=== PATIENT | female | born 1965 | race African-American/Black ===

== ENCOUNTER 2016-03-17 22:13 | Inpatient (IN) | payer OTHER ==
[~2016-03-17] VITALS: Ht 167.6 cm; Wt 118.3 kg
[~2016-03-17 22:13] MED LIST: ESCI10TA PO; LURA40 PO; METO25 PO; PRAZ1 PO; QUET100 PO; SERO100T PO; TAMS0.4C67 PO
[2016-03-17 23:35] VITALS: BP 165/97; PULSE 95; RESP 18; TEMP 97.9; O2SAT 99
[2016-03-18] MEDS ORDERED: BENZTROPINE MESYLATE 2 MG/2 ML VIAL IM PRN (00:15)
[2016-03-18] MEDS ORDERED: BENZTROPINE MESYLATE 1 MG TAB PO PRN (00:15)
[2016-03-18] MEDS ORDERED: MAGNESIUM HYDROXIDE SUSP 30 ML CUP PO PRN (00:15)
[2016-03-18] MEDS: traZODone HCL 50 MG TAB PO PRN ×2 (00:44→22:23)
[2016-03-18 06:08] VITALS: BP 132/70; PULSE 81; RESP 17; TEMP 97.6
[2016-03-18 07:17] LABS: AUTOMATED NEUTROPHIL # 1.6 TH/MM3 (1.8-7.7); BASOPHIL % 0.4 % (0.0-2.0); EOSINOPHIL # 0.1 TH/MM3 (0-0.4); EOSINOPHIL % 2.4 % (0.0-4.0); HEMATOCRIT 35.5 % (35.0-46.0); HEMO FLAGS DIFF FINAL; LYMPHOCYTE # 1.3 TH/MM3 (1.0-4.8); MEAN CELL VOLUME 81.8 FL (80.0-100.0); MEAN CORPUSCULAR HEMOGLOBIN 27.5 PG (27.0-34.0); MEAN CORPUSCULAR HGB CONC 33.7 % (32.0-36.0); MONO % 10.1 % (0.0-8.0); NEUT % 48.1 % (16.0-70.0); PLATELET COUNT 135 TH/MM3 (150-450); RED BLOOD COUNT 4.34 MIL/MM3 (4.00-5.30); RED CELL DISTRIBUTION WIDTH 15.2 % (11.6-17.2); WHITE BLOOD COUNT 3.4 TH/MM3 (4.0-11.0)
[2016-03-18 07:45] LABS: ALKALINE PHOSPHATASE 86 U/L (45-117); ALT (GPT) 21 U/L (10-53); ANION GAP 9 MEQ/L (5-15); AST (GOT) 10 U/L (15-37); BICARBONATE 24.1 MEQ/L (21.0-32.0); BLOOD UREA NITROGEN 11 MG/DL (7-18); CHLORIDE 104 MEQ/L (98-107); GLOMERULAR FILTRATION RATE 89 ML/MIN (>89); SODIUM (NA) 137 MEQ/L (136-145); TOTAL BILIRUBIN ADULT 0.3 MG/DL (0.2-1.0)
[2016-03-18 07:46] LABS: BHCG SCREEN QUALITATIVE LESS THAN 1 MIU/ML (0-5)
[2016-03-18] MEDS: ACETAMINOPHEN 325 MG TAB PO PRN (10:11)
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
[2016-03-18] MEDS: PRAZOSIN HCL 1 MG CAP PO SCH ×2 (11:10→22:23)
[2016-03-18] MEDS: QUEtiapine FUMARATE 200 MG TAB PO SCH ×2 (11:10→22:23)
[2016-03-18] MEDS: ALUMINUM/MAGNESIUM/SIMETH 30 ML CUP PO PRN (17:55)
[2016-03-18 18:16] VITALS: BP 114/67; PULSE 83; RESP 12; O2SAT 98
[2016-03-18 20:50] VITALS: BP 146/87; PULSE 83
[2016-03-19 05:21] VITALS: BP 131/84; PULSE 88; RESP 18; TEMP 98.5; O2SAT 95
[2016-03-19] MEDS: PRAZOSIN HCL 1 MG CAP PO SCH ×2 (09:00→21:26)
[2016-03-19] MEDS: QUEtiapine FUMARATE 200 MG TAB PO SCH ×2 (09:00→21:26)
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
[2016-03-19] MEDS ORDERED: DEXTROSE 50% IN WATER 50 ML VIAL(D50) IV PUSH PRN (17:30)
[2016-03-19] MEDS ORDERED: GLUCAGON 1 MG/ML VIAL OTHER PRN (17:30)
[2016-03-19] MEDS ORDERED: PILL SPLITTER OTHER PRN (17:45)
[2016-03-19 19:29] VITALS: BP 157/76; PULSE 102; RESP 18; TEMP 98.3; O2SAT 99
[2016-03-19] MEDS: INSULIN ASPART SUPPLEMENTAL SCALE SQ SCH (21:25)
[2016-03-20] MEDS: traZODone HCL 50 MG TAB PO PRN (04:36)
[2016-03-20] MEDS: ACETAMINOPHEN 325 MG TAB PO PRN ×2 (04:36→17:40)
[2016-03-20 06:14] VITALS: BP 142/62; PULSE 98; RESP 18; TEMP 98.3; O2SAT 96
[2016-03-20] MEDS: INSULIN ASPART SUPPLEMENTAL SCALE SQ SCH ×2 (08:21→17:37)
[2016-03-20] MEDS: PRAZOSIN HCL 1 MG CAP PO SCH ×2 (08:36→22:05)
[2016-03-20] MEDS: QUEtiapine FUMARATE 200 MG TAB PO SCH ×2 (08:36→22:05)
[2016-03-20] MEDS: LURASIDONE 40 MG TAB PO SCH (08:36)
--- NOTE | 2016-03-20 12:14 | HHI.PYPN ---
Subjective Remarks Patient seen and examined with nursing staff. Chart reviewed. Case discussed with nursing staff. On my examination today, patient reports that she slept somewhat poorly overnight. She denies any suicidal or homicidal ideation while here but remains quite upset and has thoughts of hurting her brother Yash's daughter and daughter's children. No AVH. Denies side effects from medications. Review of Systems Other Patient complains of scalp itch. I note that the patient was found to have nummular eczema during her previous hospitalization and was prescribed Eucerin cream. Also some complaints of ongoing constipation although she was able to move her bowels a little bit yesterday. No other physical complaints. Objective Alert: Yes [place]: Person, Place, Date, Situation Mood: Calm Affect: Other (fairly full and reactive) Memory Intact: Comment (Intact) Hallucinations: Other (no AVH) Delusions: No Delusion Type: Other (no delusional material) Suicidal: Ideation (No SI) Homicidal: Ideation (no HI against anyone on the unit. See above.) Insight/Judgement Fair Remarks I do note patient continues to have a rash at the scalp. No signs of superinfection. No motoric abnormalities noted. Thought processes linear. Speech within normal limits for rate, tone and volume. Labs Test 03/20/16 07:42 Fasting Glucose 204 MG/DL Labs reviewed. I note that patient's fasting glucose was elevated at 204. Vitals/IOs Vital Signs Date Time Temp Pulse Resp B/P Pulse Ox O2 Delivery O2 Flow Rate FiO2 03/20/16 06:14 98.3 98 18 142/62 96 Assessment & Plan Problem List: (1) Schizoaffective disorder ICD Code: F25.9 (2) Chronic post-traumatic stress disorder ICD Code: F43.12 Assessment & Plan Add Eucerin cream for patient's rash. I will order patient some Colace for bowel issues. Continue insulin with sliding scale for hyperglycemia. Continue current psychotropics as ordered. Continue other medications and care as ordered. Justification for Cont. Inpt. Safety concerns. Discharge Planning Per Dr. Santana Request HC Surrog/Guard Advoc?: No Problem Qualifiers (1) Schizoaffective disorder: Qualified Code: F25.1 - Schizoaffective disorder, depressive type Tony Santos MD Mar 20, 2016 12:14
[2016-03-20] MEDS: ALUMINUM/MAGNESIUM/SIMETH 30 ML CUP PO PRN (17:39)
[2016-03-20 20:00] VITALS: BP 168/110; PULSE 91; RESP 17; TEMP 97.2; O2SAT 100
[2016-03-20] MEDS: DOCUSATE SODIUM 100 MG CAP PO SCH (22:05)
[2016-03-20] MEDS: EUCERIN CREAM 120 GM JAR TOPICAL SCH (22:06)
[2016-03-21 01:00] VITALS: BP 138/101; PULSE 103
[2016-03-21] MEDS: traZODone HCL 50 MG TAB PO PRN (02:29)
[2016-03-21] MEDS: ACETAMINOPHEN 325 MG TAB PO PRN ×3 (02:30→21:30)
[2016-03-21 06:40] VITALS: BP 141/86; PULSE 88; RESP 18; TEMP 97.8
[2016-03-21] MEDS: DOCUSATE SODIUM 100 MG CAP PO SCH ×2 (08:20→21:28)
[2016-03-21] MEDS: QUEtiapine FUMARATE 200 MG TAB PO SCH ×2 (08:20→21:28)
[2016-03-21] MEDS: LURASIDONE 40 MG TAB PO SCH (08:20)
[2016-03-21] MEDS: PRAZOSIN HCL 1 MG CAP PO SCH ×2 (08:20→21:27)
[2016-03-21] MEDS: EUCERIN CREAM 120 GM JAR TOPICAL SCH ×2 (08:23→21:28)
[2016-03-21] MEDS: INSULIN ASPART SUPPLEMENTAL SCALE SQ SCH ×2 (09:08→17:28)
--- NOTE | 2016-03-21 16:00 | HHI.PYPN ---
Subjective Remarks Patient seen and examined with nursing staff. Chart reviewed. Case discussed with nursing staff. On my examination today, patient chiefly preoccupied with somatic symptoms. She is having a frontal headache of moderate severity. Reports that she doesn't usually get headaches with this quality. Blood pressures have also been somewhat elevated. I note patient was on some amlodipine and metformin previous admission. No SI or HI voiced. No evident side effects from medications. Review of Systems Other See above Objective Alert: Yes [place]: Person, Place, Date Mood: Anxious Affect: Other (a little bit dysphoric) Memory Intact: Comment (remains intact) Hallucinations: Other (none) Delusions: No Delusion Type: Other (no delusions) Suicidal: Ideation (no SI voiced) Homicidal: Ideation (no HI voiced) Insight/Judgement Fair Remarks Thought process linear Labs Labs reviewed. No new labs. Vitals/IOs Vital Signs Date Time Temp Pulse Resp B/P Pulse Ox O2 Delivery O2 Flow Rate FiO2 03/21/16 06:40 97.8 88 18 141/86 03/20/16 20:00 100 Assessment & Plan Problem List: (1) Schizoaffective disorder ICD Code: F25.9 (2) Chronic post-traumatic stress disorder ICD Code: F43.12 Assessment & Plan Continue current psychotropics as ordered. Resume metformin and amlodipine with blood pressure parameters. Continue Accu-Cheks and sliding scale. I'll consult the hospitalist to assess headache. Continue other medications include care as ordered. Justification for Cont. Inpt. Complicating conditions Discharge Planning Per Dr. Santana Request HC Surrog/Guard Advoc?: No Problem Qualifiers (1) Schizoaffective disorder: Qualified Code: F25.1 - Schizoaffective disorder, depressive type Tony Santos MD Mar 21, 2016 15:59
[2016-03-21] MEDS: metFORMIN HCL 500 MG TAB PO SCH (17:13)
[2016-03-22] MEDS: ACETAMINOPHEN 325 MG TAB PO PRN (04:52)
[2016-03-22 05:36] VITALS: BP 159/101; PULSE 86; RESP 18; TEMP 98.1; O2SAT 98
[2016-03-22] MEDS: metFORMIN HCL 500 MG TAB PO SCH ×2 (09:00→18:02)
[2016-03-22] MEDS: METOPROLOL TARTRATE 25 MG TAB PO SCH ×2 (09:00→20:30)
[2016-03-22] MEDS: PRAZOSIN HCL 1 MG CAP PO SCH ×2 (09:00→20:30)
[2016-03-22] MEDS: LURASIDONE 40 MG TAB PO SCH (09:01)
[2016-03-22] MEDS: DOCUSATE SODIUM 100 MG CAP PO SCH ×2 (09:01→20:30)
[2016-03-22] MEDS: QUEtiapine FUMARATE 200 MG TAB PO SCH ×2 (09:01→20:30)
[2016-03-22] MEDS: EUCERIN CREAM 120 GM JAR TOPICAL SCH ×2 (09:02→20:33)
[2016-03-22] MEDS: INSULIN ASPART SUPPLEMENTAL SCALE SQ SCH ×3 (09:02→20:31)
--- NOTE | 2016-03-22 13:38 | PD.CONS ---
[facility] Reason for Consult Headache Primary Care Physician Non-Staff Diagnoses: History of Present Illness This is a pleasant 51-year-old female patient with past medical history which includes hyperlipidemia, hypertension, asthma, anxiety/ depression, bipolar, uterine fibroids. Patient is currently in inpatient psychiatric center we have been consulted for Headache. Patient reports that she has a pounding headache located in her forehead and behind her eye bilaterally. The headache has been present for the past three days. The headache is rated as moderate to severe. Improved but not completely received by Tylenol. BP noted to be elevated. Patient denies visual changes. Patient also complaints of bilateral arm numbness and tingling. This comes and goes worse when patient first wakes up in the AM and with certain positions. the numbness and tingling is reproducible with placing hand on top of head and flexing. Patient denies fevers, chill, chest pain, shortness of breath n/v/d/c. Review of Systems Other All other systems reviewed and negative with the exceptions listed is HPI Past Family Social History Allergies: Coded Allergies: No Known Allergies (Verified , 08/04/14) Past Medical History hyperlipidemia, hypertension, asthma, anxiety/depression, bipolar uterine fibroids and question of ovarian mass Past Surgical History Appendectomy Reported Medications Seroquel (Quetiapine Fumarate) 100 Mg Tab 100 Mg PO HS Minipress (Prazosin HCl) 1 Mg Cap 1 Mg PO BID Latuda (Lurasidone) 40 Mg Tab 60 Mg PO WITH DINNER Escitalopram (Escitalopram Oxalate) 10 Mg Tab 5 Mg PO DAILY Quetiapine Fumarate 100 Mg Tab 100 Mg PO DAILY Flomax (Tamsulosin HCl) 0.4 Mg Cap 0.4 Mg PO DAILY Metoprolol Tartrate 25 mg (Metoprolol Tartrate) 25 Mg Tab 25 Mg PO BID Family History Mother secondary to VT at age 69 Father at a younger age from gunshot wound Brother has heart disease another Brother has bipolar/schizophrenia Social History Patient reports she smokes cigarettes occasionally EtOH use occasionally Marijuana and cocaine Physical Exam Vital Signs Vital Signs Date Time Temp Pulse Resp B/P Pulse Ox O2 Delivery O2 Flow Rate FiO2 03/22/16 05:36 98.1 86 18 159/101 98 Physical Exam GENERAL: This is a morbidly obese , in no apparent distress. CARDIOVASCULAR: Regular rate and rhythm without murmurs, gallops, or rubs. RESPIRATORY: Clear to auscultation. Breath sounds equal bilaterally. No wheezes , rales, or rhonchi. GASTROINTESTINAL: Abdomen soft, non-tender, nondistended. Normal active bowel sounds MUSCULOSKELETAL: Extremities without clubbing, cyanosis, or edema. NEURO: Alert & Oriented x4 to person, place, time, situation. Moves all ext x4 Result Diagram: 03/18/16 0632 03/18/16 0632 Assessment and Plan Assessment and Plan 51-year-old female patient with past medical history which includes hyperlipidemia, hypertension, asthma, anxiety/depression, bipolar, uterine fibroids and question of ovarian mass. Patient is currently in inpatient psychiatric center we have been consulted for headache. Bipolar, posttraumatic stress disorder- management per psychiatric team Headache- with elevated BP control BP Acetaminophen as needed for headache Hypertension Will resume Amlodipine 10 mg daily and metoprolol 25 mg daily Continue to monitor Elevated blood glucose with a HA1c 6.2 continue metformin 500mg BID- Accu checks ACHS with SSI BLE radiculopathy Start Neurontin- follow up outpatient with PCP and neurosurgeon DVT prophylaxis patient is ambulatory Discussed with patient and RN Written by Rossana Valdez, acting as scribe for Dr. Smith on 03/22/16 at 15:31. The documentation accurately reflects the work performed [id number] by me on at 15:31. Rossana Valdez Mar 22, 2016 13:38 Laurence Smith MD Mar 23, 2016 17:12 Discussed with patient and RN Rossana Valdez Mar 22, 2016 13:38
[2016-03-22] MEDS ORDERED: GLUCAGON 1 MG/ML VIAL OTHER PRN (15:30)
[2016-03-22] MEDS ORDERED: DEXTROSE 50% IN WATER 50 ML VIAL(D50) IV PUSH PRN (15:30)
[2016-03-22] MEDS: GABAPENTIN 100 MG CAP PO SCH (18:02)
[2016-03-22 21:45] VITALS: BP 131/85; PULSE 91; RESP 17; TEMP 97.6; O2SAT 98
[2016-03-22] MEDS: ALUMINUM/MAGNESIUM/SIMETH 30 ML CUP PO PRN (22:33)
[2016-03-23] MEDS: ACETAMINOPHEN 325 MG TAB PO PRN (05:38)
[2016-03-23] MEDS: INSULIN ASPART SUPPLEMENTAL SCALE SQ SCH ×4 (05:58→20:35)
[2016-03-23 06:06] VITALS: BP 139/69; PULSE 87; RESP 18; TEMP 97.9; O2SAT 99
[2016-03-23] MEDS: GABAPENTIN 100 MG CAP PO SCH ×3 (08:33→17:34)
[2016-03-23] MEDS: DOCUSATE SODIUM 100 MG CAP PO SCH ×2 (08:33→20:34)
[2016-03-23] MEDS: metFORMIN HCL 500 MG TAB PO SCH ×2 (08:33→17:34)
[2016-03-23] MEDS: PRAZOSIN HCL 1 MG CAP PO SCH ×2 (08:34→20:34)
[2016-03-23] MEDS: METOPROLOL TARTRATE 25 MG TAB PO SCH ×2 (08:34→20:34)
[2016-03-23] MEDS: QUEtiapine FUMARATE 200 MG TAB PO SCH ×2 (08:34→20:34)
[2016-03-23] MEDS: LURASIDONE 40 MG TAB PO SCH (08:34)
[2016-03-23] MEDS: EUCERIN CREAM 120 GM JAR TOPICAL SCH ×2 (08:37→20:35)
--- NOTE | 2016-03-23 11:30 | HHI.PYPN ---
Subjective Remarks Patient was seen and discussed with the event staff member. Patient claimed that today she has not been feeling well she has some bad thoughts crossing her mind but she is not going to do anything to hurt herself. She feels safe in the hospital. She was feeling stressed and overwhelmed at home taking care of her brother's children. They're going to be home for another week. No side effects were complained she has been taking the medication she was encouraged to participate in all the therapeutic activity on the floor Review of Systems Except as stated in HPI: all other systems reviewed are Neg Psychiatric: COMPLAINS OF: Mood changes, Depression Objective Alert: Yes [place]: Person, Place, Date, Situation Mood: Anxious, Depressed, Other (frustrated and overwhelmed with the stress at home) Affect: Other (a little bit dysphoric) Memory Intact: Comment (remains intact) Hallucinations: Other (none) Delusions: No Delusion Type: Other (no delusions) Suicidal: Ideation (no SI voiced) Homicidal: Ideation (no HI voiced) Insight/Judgement Fair Remarks Concentration and attention span is improving. Gait normal. Language normal. Fund of knowledge average Vitals/IOs Vital Signs Date Time Temp Pulse Resp B/P Pulse Ox O2 Delivery O2 Flow Rate FiO2 03/23/16 06:06 97.9 87 18 139/69 99 Assessment & Plan Problem List: (1) Schizoaffective disorder ICD Code: F25.9 (2) Chronic post-traumatic stress disorder ICD Code: F43.12 Assessment & Plan Estimated LOS: days Justification for Cont. Inpt. Monitoring of the medication and safety issue Request HC Surrog/Guard Advoc?: No Problem Qualifiers (1) Schizoaffective disorder: Qualified Code: F25.1 - Schizoaffective disorder, depressive type Maxwell Parra MD Mar 23, 2016 11:29
[2016-03-23 20:00] VITALS: BP 136/77; PULSE 99; RESP 18; TEMP 97.7
[2016-03-23] MEDS: traZODone HCL 50 MG TAB PO PRN (20:34)
[2016-03-24 05:49] VITALS: BP 123/75; PULSE 91; RESP 16; TEMP 97.2; O2SAT 97
[2016-03-24] MEDS: INSULIN ASPART SUPPLEMENTAL SCALE SQ SCH ×4 (06:05→21:05)
[2016-03-24] MEDS: metFORMIN HCL 500 MG TAB PO SCH ×2 (08:16→18:55)
[2016-03-24] MEDS: ACETAMINOPHEN 325 MG TAB PO PRN (08:16)
[2016-03-24] MEDS: QUEtiapine FUMARATE 200 MG TAB PO SCH ×2 (08:16→20:46)
[2016-03-24] MEDS: LURASIDONE 40 MG TAB PO SCH (08:16)
[2016-03-24] MEDS: PRAZOSIN HCL 1 MG CAP PO SCH ×2 (08:16→20:46)
[2016-03-24] MEDS: GABAPENTIN 100 MG CAP PO SCH ×3 (08:16→18:55)
[2016-03-24] MEDS: DOCUSATE SODIUM 100 MG CAP PO SCH ×2 (08:16→20:46)
[2016-03-24] MEDS: EUCERIN CREAM 120 GM JAR TOPICAL SCH ×2 (08:18→20:46)
[2016-03-24] MEDS: METOPROLOL TARTRATE 25 MG TAB PO SCH ×2 (09:00→20:46)
--- NOTE | 2016-03-24 11:37 | HHI.PYPN ---
Subjective Remarks Patient was seen and discussed with the balance staff inspector. Patient claimed that she still feels under stress as loneliness her family members are staying with her and she gets easily agitated and angry. She claimed that she has thoughts of wanting to hurt them especially the children but she could be reassured. Patient denied any suicidal ideation or plan in the hospital. No behavior or management problem reported. Patient is compliant in taking medication. No side effects were complained. Continue with the same treatment Review of Systems Except as stated in HPI: all other systems reviewed are Neg Psychiatric: COMPLAINS OF: Mood changes, Depression Objective Alert: Yes [place]: Person, Place, Date, Situation Mood: Anxious, Depressed, Other (gets easily agitated and angry at the children at home and feels overwhelmed) Affect: Other (a little bit dysphoric) Memory Intact: Comment (remains intact) Hallucinations: Other (none) Delusions: No Delusion Type: Other (no delusions) Suicidal: Ideation (no SI voiced) Homicidal: Ideation (no HI voiced) Insight/Judgement Fair to limited Vitals/IOs Vital Signs Date Time Temp Pulse Resp B/P Pulse Ox O2 Delivery O2 Flow Rate FiO2 03/24/16 05:49 97.2 91 16 123/75 97 Assessment & Plan Problem List: (1) Schizoaffective disorder ICD Code: F25.9 (2) Chronic post-traumatic stress disorder ICD Code: F43.12 Assessment & Plan Estimated LOS: days Justification for Cont. Inpt. Monitoring of the medication and risk of hurting others for safety purposes she needs to be in the hospital Request HC Surrog/Guard Advoc?: No Problem Qualifiers (1) Schizoaffective disorder: Qualified Code: F25.1 - Schizoaffective disorder, depressive type Maxwell Parra MD Mar 24, 2016 11:36
[2016-03-24 19:04] VITALS: BP 141/77; PULSE 92; RESP 18; TEMP 98; O2SAT 99
[2016-03-25] MEDS: ACETAMINOPHEN 325 MG TAB PO PRN (03:48)
[2016-03-25] MEDS: traZODone HCL 50 MG TAB PO PRN (03:48)
[2016-03-25 05:48] VITALS: BP 142/83; PULSE 84; RESP 17; TEMP 97.6; O2SAT 95
[2016-03-25] MEDS: INSULIN ASPART SUPPLEMENTAL SCALE SQ SCH ×4 (06:09→20:50)
[2016-03-25] MEDS: GABAPENTIN 100 MG CAP PO SCH ×3 (08:37→17:09)
[2016-03-25] MEDS: DOCUSATE SODIUM 100 MG CAP PO SCH ×2 (08:37→20:50)
[2016-03-25] MEDS: METOPROLOL TARTRATE 25 MG TAB PO SCH ×2 (08:37→20:50)
[2016-03-25] MEDS: PRAZOSIN HCL 1 MG CAP PO SCH ×2 (08:37→20:50)
[2016-03-25] MEDS: QUEtiapine FUMARATE 200 MG TAB PO SCH ×2 (08:38→20:50)
[2016-03-25] MEDS: metFORMIN HCL 500 MG TAB PO SCH ×2 (08:38→17:09)
[2016-03-25] MEDS: LURASIDONE 40 MG TAB PO SCH (08:38)
[2016-03-25] MEDS: EUCERIN CREAM 120 GM JAR TOPICAL SCH ×2 (08:40→20:50)
--- NOTE | 2016-03-25 13:33 | HHI.PYPN ---
Subjective Remarks Patient was seen and discussed with the staff electrical engineer. Patient reported that she has been feeling that her than yesterday but still complains of some sedation probably secondary to the medication. She also reported that sometimes she sees shadows around her corner of the eyes but learning to ignore that. Denies any active auditory or visual hallucinations. Denies any suicidal and/or homicidal ideation intentions or plan. She feels hopeful that her relatives are going to leave and it will relieves all the stress that she was feeling. Continue with the same treatment. Review of Systems Except as stated in HPI: all other systems reviewed are Neg Psychiatric: COMPLAINS OF: Mood changes, Depression, Hallucinations Objective Alert: Yes [place]: Person, Place, Date, Situation Mood: Anxious, Depressed, Other (patient feels little better as her family members are going to leave and that would relieve her stress) Affect: Other (a little bit dysphoric) Memory Intact: Comment (remains intact) Hallucinations: Other (none) Delusions: No Delusion Type: Other (no delusions) Suicidal: Ideation (no SI voiced) Homicidal: Ideation (no HI voiced) Insight/Judgement Fair to limited Vitals/IOs Vital Signs Date Time Temp Pulse Resp B/P Pulse Ox O2 Delivery O2 Flow Rate FiO2 03/25/16 05:48 97.6 84 17 142/83 95 Assessment & Plan Problem List: (1) Schizoaffective disorder ICD Code: F25.9 (2) Chronic post-traumatic stress disorder ICD Code: F43.12 Assessment & Plan Estimated LOS: days Justification for Cont. Inpt. Risk of decompensation and monitoring of the medication Request HC Surrog/Guard Advoc?: No Problem Qualifiers (1) Schizoaffective disorder: Qualified Code: F25.1 - Schizoaffective disorder, depressive type Maxwell Parra MD Mar 25, 2016 13:33
[2016-03-25] MEDS ORDERED: BENZOCAINE-MENTHOL (SUGAR FREE) 15 MG-3.6 MG LOZENGE BUCCAL PRN (14:45)
--- NOTE | 2016-03-25 17:28 | HHI.PR ---
Subjective Remarks Follow-up visit neuropathy, sore throat. Patient seen today. Complaints of sore throat. Occasional cough not expectorating anything. Denies postnasal drip. Neuropathic pain improved with gabapentin use. Otherwise, denies pain and discomfort. Denies SOB/ dyspnea. Denies chestpain, palpitations, headaches , dizziness. Denies fevers, chills, n/v/d. Objective Vitals Vital Signs Date Time Temp Pulse Resp B/P Pulse Ox O2 Delivery O2 Flow Rate FiO2 03/25/16 05:48 97.6 84 17 142/83 95 03/24/16 19:04 98.0 92 18 141/77 99 Objective Remarks GENERAL: This is a morbidly obese , in no apparent distress. HEENT: No throat erythema noted. Uvula midline. Airway patent. CARDIOVASCULAR: Regular rate and rhythm without murmurs, gallops, or rubs. RESPIRATORY: Clear to auscultation. Breath sounds equal bilaterally. No wheezes , rales, or rhonchi. GASTROINTESTINAL: Abdomen soft, non-tender, nondistended. Normal active bowel sounds MUSCULOSKELETAL: Extremities without clubbing, cyanosis, or edema. NEURO: Alert & Oriented x4 to person, place, time, situation. Moves all ext x4 A/P Problem List: (1) Schizoaffective disorder ICD Code: F25.9 Status: Acute (2) Chronic post-traumatic stress disorder ICD Code: F43.12 Status: Acute (3) Bipolar I disorder, most recent episode depressed, mild ICD Code: F31.31 Status: Acute (4) HTN (hypertension) ICD Code: I10 Status: Acute (5) Sore throat ICD Code: J02.9 Status: Acute Assessment and Plan 51-year-old female patient with past medical history which includes hyperlipidemia, hypertension, asthma, anxiety/depression, bipolar, uterine fibroids and question of ovarian mass. Patient is currently in inpatient psychiatric center we have been consulted for headache. Bipolar, posttraumatic stress disorder- management per psychiatric team Sore throat - lozenges ordered - Zyrtec 10 mg daily at bedtime Headache- with elevated BP control BP Acetaminophen as needed for headache Hypertension - On Amlodipine 10 mg daily and metoprolol 25 mg daily - Continue to monitor repeat trend Elevated blood glucose with a HA1c 6.2 - continue metformin 500mg BID- Accu checks ACHS with SSI BLE radiculopathy - on Neurontin, improved - follow up outpatient with PCP and neurosurgeon DVT prophylaxis patient is ambulatory Discussed with patient, RN, and Dr. Fitzpatrick Problem Qualifiers (1) Schizoaffective disorder: Qualified Code: F25.1 - Schizoaffective disorder, depressive type Bear Henning Mar 25, 2016 17:28
[2016-03-25 19:46] VITALS: BP 151/77; PULSE 98; RESP 17; TEMP 98.6
[2016-03-25] MEDS: CETIRIZINE HCL 10 MG TAB PO SCH (20:50)
[2016-03-25] MEDS: BENZOCAINE-MENTHOL (SUGAR FREE) 15 MG-3.6 MG LOZENGE BUCCAL PRN (22:35)
[2016-03-26] MEDS: ACETAMINOPHEN 325 MG TAB PO PRN ×2 (02:09→16:00)
[2016-03-26] MEDS: BENZOCAINE-MENTHOL (SUGAR FREE) 15 MG-3.6 MG LOZENGE BUCCAL PRN (02:10)
[2016-03-26 06:17] VITALS: BP 110/58; PULSE 92; RESP 19; TEMP 97.6; O2SAT 96
[2016-03-26] MEDS: INSULIN ASPART SUPPLEMENTAL SCALE SQ SCH ×4 (06:41→20:05)
[2016-03-26] MEDS: EUCERIN CREAM 120 GM JAR TOPICAL SCH ×2 (09:00→21:12)
[2016-03-26] MEDS: DOCUSATE SODIUM 100 MG CAP PO SCH ×2 (09:16→21:12)
[2016-03-26] MEDS: LURASIDONE 40 MG TAB PO SCH (09:16)
[2016-03-26] MEDS: METOPROLOL TARTRATE 25 MG TAB PO SCH ×2 (09:16→21:11)
[2016-03-26] MEDS: GABAPENTIN 100 MG CAP PO SCH ×3 (09:16→16:03)
[2016-03-26] MEDS: metFORMIN HCL 500 MG TAB PO SCH ×2 (09:16→16:03)
[2016-03-26] MEDS: PRAZOSIN HCL 1 MG CAP PO SCH ×2 (09:16→21:11)
[2016-03-26] MEDS: QUEtiapine FUMARATE 200 MG TAB PO SCH ×2 (09:16→21:12)
--- NOTE | 2016-03-26 13:53 | HHI.PYPN ---
Subjective Remarks Patient was seen and discussed with the staffing coordinator. Patient complain about having some itching in the back of her head she was advised to try some Benadryl but other than that she has been doing better she feels hopeful. Denied any active auditory or visual hallucinations. She hopes that her family members leave by Tuesday and she want be feeling stressed and would be able to go home and willing to follow-up as an outpatient. No behavior or management problem reported. Patient is compliant in taking medication no side effects were complained. Review of Systems Except as stated in HPI: all other systems reviewed are Neg Psychiatric: COMPLAINS OF: Mood changes, Depression Objective Alert: Yes [place]: Person, Place, Date, Situation Mood: Anxious, Depressed, Other (patient feels little better as her family members are going to leave and that would relieve her stress) Affect: Other (a little bit dysphoric) Memory Intact: Comment (remains intact) Hallucinations: Other (none) Delusions: No Delusion Type: Other (no delusions) Suicidal: Ideation (no SI voiced) Homicidal: Ideation (no HI voiced) Insight/Judgement Fair Remarks Attention and concentration improving. Gait normal. Language normal. Fund of knowledge average Vitals/IOs Vital Signs Date Time Temp Pulse Resp B/P Pulse Ox O2 Delivery O2 Flow Rate FiO2 03/26/16 06:17 97.6 92 19 110/58 96 Assessment & Plan Problem List: (1) Schizoaffective disorder ICD Code: F25.9 (2) Chronic post-traumatic stress disorder ICD Code: F43.12 Assessment & Plan Estimated LOS: days Justification for Cont. Inpt. Titrating and monitoring of the medication. For safety issue of the others family members Request HC Surrog/Guard Advoc?: No Problem Qualifiers (1) Schizoaffective disorder: Qualified Code: F25.1 - Schizoaffective disorder, depressive type Maxwell Parra MD Mar 26, 2016 13:52
[2016-03-26] MEDS: diphenhydrAMINE HCL 50 MG CAP PO PRN ×2 (16:00→21:21)
[2016-03-26] MEDS: ALUMINUM/MAGNESIUM/SIMETH 30 ML CUP PO PRN (17:40)
[2016-03-26 19:07] VITALS: BP 132/71; PULSE 99; RESP 17; TEMP 97.7; O2SAT 95
[2016-03-26] MEDS: CETIRIZINE HCL 10 MG TAB PO SCH (21:12)
[2016-03-27] MEDS: BENZOCAINE-MENTHOL (SUGAR FREE) 15 MG-3.6 MG LOZENGE BUCCAL PRN (01:18)
[2016-03-27] MEDS: ACETAMINOPHEN 325 MG TAB PO PRN ×3 (01:21→19:42)
[2016-03-27 06:24] VITALS: BP 117/80; PULSE 86; RESP 16; TEMP 97.6; O2SAT 99
[2016-03-27] MEDS: INSULIN ASPART SUPPLEMENTAL SCALE SQ SCH ×4 (06:35→21:00)
[2016-03-27] MEDS: PRAZOSIN HCL 1 MG CAP PO SCH ×2 (09:00→21:43)
[2016-03-27] MEDS: METOPROLOL TARTRATE 25 MG TAB PO SCH ×2 (09:00→21:42)
[2016-03-27] MEDS: QUEtiapine FUMARATE 200 MG TAB PO SCH ×2 (09:00→21:43)
[2016-03-27] MEDS: metFORMIN HCL 500 MG TAB PO SCH ×2 (09:17→17:11)
[2016-03-27] MEDS: DOCUSATE SODIUM 100 MG CAP PO SCH ×2 (09:17→21:43)
[2016-03-27] MEDS: LURASIDONE 40 MG TAB PO SCH (09:17)
[2016-03-27] MEDS: diphenhydrAMINE HCL 50 MG CAP PO PRN ×3 (09:17→23:52)
[2016-03-27] MEDS: GABAPENTIN 100 MG CAP PO SCH ×3 (09:17→17:11)
[2016-03-27] MEDS: EUCERIN CREAM 120 GM JAR TOPICAL SCH ×2 (09:18→21:42)
[2016-03-27 19:54] VITALS: BP 114/58; PULSE 86; RESP 16; TEMP 98.2; O2SAT 95
[2016-03-27] MEDS: CETIRIZINE HCL 10 MG TAB PO SCH (21:43)
--- NOTE | 2016-03-27 22:06 | HHI.PYPN ---
Subjective Remarks Pt seen and discussed with staff. Pt is compliant with treatment and denies medication side effects. No AVH. No disruptive behavior. Objective Alert: Yes [place]: Person, Place, Date, Situation Mood: Anxious, Depressed Affect: Other (a little bit dysphoric) Memory Intact: Comment (remains intact) Hallucinations: Other (none) Delusions: No Delusion Type: Other (no delusions) Suicidal: Ideation (no SI voiced) Homicidal: Ideation (no HI voiced) Insight/Judgement poor Vitals/IOs Vital Signs Date Time Temp Pulse Resp B/P Pulse Ox O2 Delivery O2 Flow Rate FiO2 03/27/16 19:54 98.2 86 16 114/58 95 Assessment & Plan Problem List: (1) Schizoaffective disorder ICD Code: F25.9 (2) Chronic post-traumatic stress disorder ICD Code: F43.12 Assessment & Plan Continue current tx plan. Estimated LOS: days Justification for Cont. Inpt. risk of decompensating Request HC Surrog/Guard Advoc?: No Problem Qualifiers (1) Schizoaffective disorder: Qualified Code: F25.1 - Schizoaffective disorder, depressive type Shy Borden MD Mar 27, 2016 22:06
[2016-03-27] MEDS: traZODone HCL 50 MG TAB PO PRN (23:52)
[2016-03-28] MEDS: ACETAMINOPHEN 325 MG TAB PO PRN (03:30)
[2016-03-28 06:13] VITALS: BP 93/55; PULSE 86; RESP 16; TEMP 97
[2016-03-28] MEDS: INSULIN ASPART SUPPLEMENTAL SCALE SQ SCH ×4 (06:41→20:04)
[2016-03-28] MEDS: EUCERIN CREAM 120 GM JAR TOPICAL SCH ×2 (09:00→22:04)
[2016-03-28] MEDS: PRAZOSIN HCL 1 MG CAP PO SCH ×2 (09:10→22:01)
[2016-03-28] MEDS: METOPROLOL TARTRATE 25 MG TAB PO SCH ×2 (09:10→22:03)
[2016-03-28] MEDS: GABAPENTIN 100 MG CAP PO SCH ×3 (09:10→17:46)
[2016-03-28] MEDS: DOCUSATE SODIUM 100 MG CAP PO SCH ×2 (09:10→22:01)
[2016-03-28] MEDS: metFORMIN HCL 500 MG TAB PO SCH ×2 (09:10→17:46)
[2016-03-28] MEDS: QUEtiapine FUMARATE 200 MG TAB PO SCH ×2 (09:10→22:01)
[2016-03-28] MEDS: LURASIDONE 40 MG TAB PO SCH (09:11)
--- NOTE | 2016-03-28 16:06 | HHI.PR ---
Subjective Remarks Follow up visit cough, sore throat. Pt. seen today. States she is doing well. Denies cough or sore throat. Denies fevers, chill, n/v/d. Denies any other complaints. Objective Vitals Vital Signs Date Time Temp Pulse Resp B/P Pulse Ox O2 Delivery O2 Flow Rate FiO2 03/28/16 06:13 97.0 86 16 93/55 03/27/16 19:54 98.2 86 16 114/58 95 Objective Remarks GENERAL: This is a morbidly obese , in no apparent distress. HEENT: No throat erythema noted. Uvula midline. Airway patent. CARDIOVASCULAR: Regular rate and rhythm without murmurs, gallops, or rubs. RESPIRATORY: Clear to auscultation. Breath sounds equal bilaterally. No wheezes , rales, or rhonchi. GASTROINTESTINAL: Abdomen soft, non-tender, nondistended. Normal active bowel sounds MUSCULOSKELETAL: Extremities without clubbing, cyanosis, or edema. NEURO: Alert & Oriented x4 to person, place, time, situation. Moves all ext x4 A/P Problem List: (1) Schizoaffective disorder ICD Code: F25.9 Status: Acute (2) Chronic post-traumatic stress disorder ICD Code: F43.12 Status: Acute (3) Bipolar I disorder, most recent episode depressed, mild ICD Code: F31.31 Status: Acute (4) HTN (hypertension) ICD Code: I10 Status: Acute (5) Sore throat ICD Code: J02.9 Status: Acute Assessment and Plan 51-year-old female patient with past medical history which includes hyperlipidemia, hypertension, asthma, anxiety/depression, bipolar, uterine fibroids and question of ovarian mass. Patient is currently in inpatient psychiatric center we have been consulted for headache. Bipolar, posttraumatic stress disorder- management per psychiatric team Sore throat - lozenges ordered - Zyrtec 10 mg daily at bedtime - Improved Headache- with elevated BP control BP Acetaminophen as needed for headache Hypertension - On Amlodipine 10 mg daily and metoprolol 25 mg daily. Hold parameters if necessary. - Continue to monitor repeat trend Elevated blood glucose with a HA1c 6.2 - continue metformin 500mg BID- Accu checks ACHS with SSI BLE radiculopathy - on Neurontin, improved - follow up outpatient with PCP and neurosurgeon DVT prophylaxis patient is ambulatory Stable from hospitalist standpoint. We will sign off for now. Reconsult as needed. Thank you. Written by Bear Oneill, acting as scribe for Dr. Casas on 03/28/16 at 15: 35. Attending Statement The documentation accurately reflects the work performed [id number] by me on at 15:35. Problem Qualifiers (1) Schizoaffective disorder: Qualified Code: F25.1 - Schizoaffective disorder, depressive type Bear Henning Mar 28, 2016 16:06 Mauirlio Wolfe MD Mar 28, 2016 23:46
[2016-03-28] MEDS: hydrOXYzine HCL 50 MG TAB PO PRN (17:46)
--- NOTE | 2016-03-28 19:31 | HHI.PYPN ---
Subjective Remarks Pt seen and discussed with staff. She reports that she found out that her brother today. She reports that she is sad over the news, but "psychiatrically I'm doing fine." She is compliant with medication and denies side effects and SI/HI. Objective Alert: Yes [place]: Person, Place, Date, Situation Mood: Calm Affect: Restricted, Other Memory Intact: Comment (remains intact) Hallucinations: Other (none) Delusions: No Delusion Type: Other (no delusions) Suicidal: Ideation (no SI voiced) Homicidal: Ideation (no HI voiced) Insight/Judgement poor Vitals/IOs Vital Signs Date Time Temp Pulse Resp B/P Pulse Ox O2 Delivery O2 Flow Rate FiO2 03/28/16 06:13 97.0 86 16 93/55 03/27/16 19:54 95 Assessment & Plan Problem List: (1) Schizoaffective disorder ICD Code: F25.9 (2) Chronic post-traumatic stress disorder ICD Code: F43.12 Assessment & Plan Continue current tx plan. Estimated LOS: days Justification for Cont. Inpt. risk of decompensating Request HC Surrog/Guard Advoc?: No Problem Qualifiers (1) Schizoaffective disorder: Qualified Code: F25.1 - Schizoaffective disorder, depressive type Shy Borden MD Mar 28, 2016 19:31
[2016-03-28 19:44] VITALS: BP 127/78; PULSE 95; RESP 18; TEMP 97.6; O2SAT 98
[2016-03-28] MEDS: traZODone HCL 50 MG TAB PO PRN (22:01)
[2016-03-28] MEDS: CETIRIZINE HCL 10 MG TAB PO SCH (22:04)
[2016-03-29] MEDS: hydrOXYzine HCL 50 MG TAB PO PRN (02:47)
[2016-03-29] MEDS: diphenhydrAMINE HCL 50 MG CAP PO PRN (06:12)
[2016-03-29] MEDS: ACETAMINOPHEN 325 MG TAB PO PRN (06:13)
[2016-03-29] MEDS: INSULIN ASPART SUPPLEMENTAL SCALE SQ SCH ×2 (06:16→11:04)
[2016-03-29 06:45] VITALS: BP 118/77; PULSE 84; RESP 18; TEMP 98.2; O2SAT 100
[2016-03-29] MEDS: METOPROLOL TARTRATE 25 MG TAB PO SCH (09:00)
[2016-03-29] MEDS: PRAZOSIN HCL 1 MG CAP PO SCH (09:00)
[2016-03-29] MEDS: EUCERIN CREAM 120 GM JAR TOPICAL SCH (09:00)
[2016-03-29] MEDS: DOCUSATE SODIUM 100 MG CAP PO SCH (09:24)
[2016-03-29] MEDS: metFORMIN HCL 500 MG TAB PO SCH (09:24)
[2016-03-29] MEDS: LURASIDONE 40 MG TAB PO SCH (09:24)
[2016-03-29] MEDS: GABAPENTIN 100 MG CAP PO SCH ×2 (09:24→13:19)
[2016-03-29] MEDS: QUEtiapine FUMARATE 200 MG TAB PO SCH (09:24)
--- NOTE | 2016-03-29 11:52 | HHI.PYPN ---
Subjective Remarks Patient was seen and discussed with the bell staff. Patient claimed that she was somewhat sad and depressed over the loss of her brother who yesterday. Patient does want to go home feels safe. Denied any suicidal ideation intentions or plan. Denied any homicidal desire or wish to hurt anyone. No behavior or management problem reported. No side effects were complained. She is compliant in taking medication and willing to take the medication upon discharge but she has to call her family members before she can be discharged she is cannot work on it today and most likely discharge tomorrow. clinical services professional to assist and aftercare and discharge planning Review of Systems Except as stated in HPI: all other systems reviewed are Neg Psychiatric: COMPLAINS OF: Mood changes, Depression Objective Alert: Yes [place]: Person, Place, Date, Situation Mood: Calm Affect: Restricted, Other Memory Intact: Comment (remains intact) Hallucinations: Other (none) Delusions: No Delusion Type: Other (no delusions) Suicidal: Ideation (no SI voiced) Homicidal: Ideation (no HI voiced) Insight/Judgement Fair Vitals/IOs Vital Signs Date Time Temp Pulse Resp B/P Pulse Ox O2 Delivery O2 Flow Rate FiO2 03/29/16 06:45 98.2 84 18 118/77 100 Assessment & Plan Problem List: (1) Schizoaffective disorder ICD Code: F25.9 (2) Chronic post-traumatic stress disorder ICD Code: F43.12 Assessment & Plan Estimated LOS: days Justification for Cont. Inpt. Risk for decompensation Request HC Surrog/Guard Advoc?: No Problem Qualifiers (1) Schizoaffective disorder: Qualified Code: F25.1 - Schizoaffective disorder, depressive type Maxwell Parra MD Mar 29, 2016 11:52
--- NOTE | 2016-04-01 15:27 | HHI.DS ---
Psychiatry Discharge Summary Inpatient Psychiatric care?: Yes Advance Directive: No Reason Not Provided: Due to Patient Condition Mental Health AdvanceDirective: No Health Care Proxy: No Admission Admission Date Mar 17, 2016 at 23:45 Admission Diagnosis: (1) schizoaffective disorder depressed GAF Score: 45 Brief History This is a 51-year-old black of female who was recently discharged. Patient reported that she was living with her brother and got under a lot of stress she got into some argument. She became agitated depressed frustrated and threatened to hurt children and herself and she went to [facility] and was [facility] acted to this facility for further care. Patient reported that she has been having difficulty sleeping. She also admitted to hallucinating telling her to hurt other people and herself but she is trying to ignore that. She also admitted to abusing pot and cocaine. Patient also admitted to going to [facility] for outpatient care. This has been going on for the past several months. She claimed that the Seroquel and lift her mood does seem to be helping her. Patient also admitted to having history of posttraumatic stress disorder. Willing to sign voluntary and cooperative with the treatment and abstain from any substance use and/or abuse Tobacco Use In Past 30 Days: No Tobacco Past 30 Days Alcohol Use: 2-3 Times Per Week Hospital Course Patient was started on supportive treatment. She participated in all the therapeutic activity on the floor. Her medication was adjusted. Patient started to feel better. Her brother and she wanted to be discharged. Patient denied any suicidal ideation intentions or plan. Denied any auditory or visual hallucinations. She was willing to take the medication and follow-up as an outpatient at that point arrangements were made for her to be discharged Results Blood Pressure 118 / 77 Vital Signs Date Time Temp Pulse Resp B/P Pulse Ox O2 Delivery O2 Flow Rate FiO2 03/29/16 06:45 98.2 84 18 118/77 100 Please see the EMR Summary of Major Lab Results Nothing significant Summary of Procedures None Imaging None Pending results at discharge: No Medications # of Antipsychotic meds at D/C: 1 Appropriate >1 Antipsych meds?: 2 Approp Antipsych med options 1 - Minimum of three failed multiple trials of monotherapy. Discharge Discharge Date: Mar 29, 2016 Discharge Diagnosis: (1) schizoaffective disorder depressed Diagnosis: Principal Mental Status Exam at Disch Patient was alert oriented 3 cooperative. Casually dressed. Her speech was slow without any evidence of loose associations or flights of ideas or pressure speech. Patient denied any suicidal ideation intentions or plan denied any auditory or visual hallucinations willing to take the medication and follow-up as an outpatient Pt Condition on Discharge: Stable Discharge Disposition: Discharge Home Discharge Instructions Diet Instructions: As Tolerated, No Restrictions Activities you can perform: Regular-No Restrictions Scheduled Appointment: Jamie Carmona Radha Appointment Date: Apr 02, 2016 Appointment Time: 7:30am Discharge Time <= 30 minutes Discharge/Advance Care Plan Health Problems: (1) Schizoaffective disorder (2) Chronic post-traumatic stress disorder Goals to promote your health * To prevent worsening of your condition and complications * To maintain your health at the optimal level Directions to meet your goals Take your medications as prescribed Follow your dietary instruction Follow activity as directed Keep your appointments as scheduled Take your immunizations and boosters as scheduled If your symptoms worsen call your PCP, if no PCP go to Urgent Care Center or Emergency Room For 11/10 questions related to your inpatient stay or results of tests pending at discharge, please contact Dr. Maxwell Parra at Smoking is Dangerous to Your Health. Avoid second hand smoking Maxwell Parra MD Apr 01, 2016 15:27
== END 2016-03-29 15:10 | disposition home or self-care (01) | DRG 885 ==
LOC: H260 23:45
PROVIDERS: ADMIT Psychiatry & Neurology Psychiatry; ATTEND Psychiatry & Neurology Psychiatry
DX: F25.9 Schizoaffective disorder, unspecified (principal); I10 Essential (primary) hypertension; F14.10 Cocaine abuse, uncomplicated; F12.10 Cannabis abuse, uncomplicated; F43.12 Post-traumatic stress disorder, chronic; J45.909 Unspecified asthma, uncomplicated; E78.5 Hyperlipidemia, unspecified; Z72.0 Tobacco use; R73.9 Hyperglycemia, unspecified; R51 Headache; K59.00 Constipation, unspecified; J02.9 Acute pharyngitis, unspecified; M54.10 Radiculopathy, site unspecified
CPT/HCPCS: 80053; 82947; 82948; 84703; 85025; J1815; Q0163

== ENCOUNTER 2017-04-28 18:23 | Inpatient (IN) | payer OTHER ==
[~2017-04-28] VITALS: Ht 175.3 cm; Wt 118.1 kg
[2017-04-28] MEDS ORDERED: LORazepam 2 MG/ML VIAL IM PRN ×2 (21:00→21:30)
[2017-04-28] MEDS ORDERED: LORazepam 0.5 MG TAB PO PRN (21:00)
[2017-04-28] MEDS ORDERED: ATOR40TA16 PO (21:01)
[2017-04-28] MEDS ORDERED: PLAV75TA29 PO (21:02)
[2017-04-28] MEDS ORDERED: LEXA10TA PO (21:06)
[2017-04-28] MEDS ORDERED: SERO300T PO (21:06)
[2017-04-28] MEDS ORDERED: DEPA500T PO (21:06)
[2017-04-28] MEDS ORDERED: METF500T PO (21:06)
[2017-04-28] MEDS ORDERED: SERO25TA PO ×2 (21:06)
[2017-04-28] MEDS ORDERED: MAGNESIUM HYDROXIDE SUSP 30 ML CUP PO PRN (21:30)
[2017-04-28] MEDS ORDERED: QUEtiapine FUMARATE 100 MG TAB PO SCH (21:30)
[2017-04-28] MEDS ORDERED: ALUMINUM/MAGNESIUM/SIMETH 30 ML CUP PO PRN (21:30)
[2017-04-28] MEDS ORDERED: LORazepam 1 MG TAB PO PRN (21:30)
[2017-04-28 22:33] VITALS: BP 131/73; PULSE 84; RESP 18; TEMP 97.2; O2SAT 97
[2017-04-29 05:36] VITALS: BP 159/76; PULSE 86; RESP 18; TEMP 97.6; O2SAT 96
[2017-04-29] MEDS: NICOTINE 21 MG/24 HR PATCH T-DERMAL SCH (09:00)
[2017-04-29 09:39] LABS: BICARBONATE 26.2 MEQ/L (21.0-32.0); BLOOD UREA NITROGEN 13 MG/DL (7-18); CALCIUM 9.3 MG/DL (8.5-10.1); CHLORIDE 103 MEQ/L (98-107); CREATININE 0.98 MG/DL (0.50-1.00); GLOMERULAR FILTRATION RATE 72 ML/MIN (>89); GLUCOSE,RANDOM 149 MG/DL (74-106); SODIUM (NA) 138 MEQ/L (136-145)
[2017-04-29 09:41] LABS: CHOLESTEROL 136 MG/DL (120-200); TRIGLYCERIDES 185 MG/DL (42-150)
[2017-04-29 09:43] LABS: CHOLESTEROL/ HDL RATIO 3.08 RATIO; HDL CHOLESTEROL 44.1 MG/DL (40.0-60.0); LDL CHOLESTEROL 55 MG/DL (0-99)
[2017-04-29] MEDS: QUEtiapine FUMARATE 25 MG TAB PO SCH ×2 (13:39→16:57)
[2017-04-29] MEDS: DIVALPROEX DR 500 MG TABEC PO SCH ×2 (13:39→20:23)
[2017-04-29] MEDS: CLOPIDOGREL 75 MG TAB PO SCH (15:10)
--- NOTE | 2017-04-29 15:16 | PD.CONS ---
HPI Service [facility] Hospitalists Consult Requested By Medical management Reason for Consult Primary Care Physician No Primary Care Physician Diagnoses: (1) Eczema (2) HTN (hypertension) (3) Diabetes mellitus (4) Neuropathy (5) Chronic headaches (6) Chest pain, exertional History of Present Illness Written by Benito Woods, acting as scribe for Dr. Rneo] on 04/29/17 at 15:20. 52-year-old -[place] female who presents to inpatient psychiatry department under Klein act transfer from a different facility. Patient reports that she was recently in [facility] and afterwards was Klein acted and transferred to [place]. Patient has a past medical history of hypertension, hyperlipidemia, asthma, diabetes, anxiety, depression, bipolar disorder, and eczema. Patient reports that there is around her neck originally presented as a type of ringworm. She visited a platform beater and was told she had a class of eczema and prescribed 2% triamcinolone which did little for the itching or rash. She reports that her skin will be itchy and she will constantly scratch she will also pick in her ears with whatever she can find. No repots of recent changes on her medications. She is also complaining of a headache that has been ongoing for about the past week, states that she will frequently have headaches like this on for the past several years. Headache will start from top of head and travel to the back, describes pain as sharp. States that closing her eyes will make headaches better and she usually takes Tylenol at home. She is also complaining of sharp chest pain which has been ongoing for the past week. She denies any significant cardiac history however does have a history of hypertension, hyperlipidemia, and diabetes. States that chest pain will sometimes happen with the headache and feels as if these are together. She also complains of bilateral leg numbness right worse than left. She feels as if there pinpricks on her legs and states that this is worst when she is standing for long periods of time or is ambulating for prolonged periods of time. Review of Systems Constitutional: DENIES: Fever, Chills Cardiovascular: COMPLAINS OF: Chest pain Gastrointestinal: DENIES: Abdominal pain, Diarrhea, Nausea, Vomiting Neurologic: COMPLAINS OF: Headache Except as stated in HPI: all other systems reviewed are Neg Past Family Social History Allergies: Coded Allergies: No Known Allergies (Verified , 08/04/14) Past Medical History HTN HLD DM II asthma anxiety bipolar disorder depression Past Surgical History appendectomy Reported Medications Reported Meds & Active Scripts Active Seroquel (Quetiapine Fumarate) 100 Mg Tab 100 Mg PO HS Minipress (Prazosin HCl) 1 Mg Cap 1 Mg PO BID Latuda (Lurasidone) 40 Mg Tab 60 Mg PO WITH DINNER Escitalopram (Escitalopram Oxalate) 10 Mg Tab 5 Mg PO DAILY Reported Seroquel (Quetiapine Fumarate) 300 Mg Tab 300 Mg PO HS Seroquel (Quetiapine Fumarate) 25 Mg Tab 25 Mg PO DAILY Seroquel (Quetiapine Fumarate) 25 Mg Tab 25 Mg PO AFTER LUNCH Metformin (Metformin HCl) 500 Mg Tab 500 Mg PO BIDPC Lexapro (Escitalopram Oxalate) 10 Mg Tab 10 Mg PO HS Depakote DR (Divalproex Sodium) 500 Mg Tabdr 500 Mg PO BID Plavix (Clopidogrel Bisulfate) 75 Mg Tab 75 Mg PO DAILY Atorvastatin (Atorvastatin Calcium) 40 Mg Tab 40 Mg PO HS Quetiapine Fumarate 100 Mg Tab 100 Mg PO DAILY Flomax (Tamsulosin HCl) 0.4 Mg Cap 0.4 Mg PO DAILY Metoprolol Tartrate 25 mg (Metoprolol Tartrate) 25 Mg Tab 25 Mg PO BID Active Ordered Medications Current Medications Medications (Trade) Dose Ordered Sig/Jayme Route Start Time Stop Time Status Last Admin (Tylenol) 650 mg Q4H PRN PO 04/28/17 21:30 (Milk Of Magnesia Liq) 30 ml DAILY PRN PO 04/28/17 21:30 (Mag-Al Plus Susp Liq) 30 ml Q6H PRN PO 04/28/17 21:30 (Habitrol 21 Mg Patch.24 Hr) 1 patch DAILY T-DERMAL 04/29/17 09:00 (Lipitor) 40 mg HS PO 04/29/17 21:00 (Plavix) 75 mg DAILY PO 04/29/17 13:00 04/29/17 15:10 (Depakote Dr) 500 mg BID PO 04/29/17 13:00 04/29/17 13:39 (Glucophage) 500 mg BIDPC PO 04/29/17 18:00 (SEROquel) 25 mg DAILY PO 04/29/17 13:00 04/29/17 13:39 (SEROquel) 25 mg DAILY@1600 PO 04/29/17 16:00 (SEROquel) 100 mg Taper HS PO 04/29/17 21:00 05/11/17 20:59 (Benadryl) 50 mg HS PRN PO 04/29/17 21:00 Family History Mother: from [place] at 69 Father: from gunshot injury Social History Tobacco:2-3 cigarettes a day since she was 19 years old Alcohol use: About 3 16 ounce drinks a day Illicit drug use: Marijuana daily, cocaine in the past when she gets depressed. Physical Exam Vital Signs Vital Signs Date Time Temp Pulse Resp B/P (MAP) Pulse Ox O2 Delivery O2 Flow Rate FiO2 04/29/17 05:36 97.6 86 18 159/76 (103) 96 04/28/17 22:33 97.2 84 18 131/73 (92) 97 Physical Exam GENERAL: This is an obese, well-developed -[place] female, in no apparent distress. SKIN: Discolored areas with healing freight router pigmented scabs surrounding bilateral ears, base of head and right upper neck area. Open to air, no redness , or drainage noted. Cool and dry. HEAD: Normocephalic. No temporal or scalp tenderness. EYES: Pupils equal round and reactive. Extraocular motions intact. No scleral icterus. No injection or drainage. ENT: Nose without bleeding. Airway patent. NECK: Trachea midline. No JVD or lymphadenopathy. Supple, nontender. CARDIOVASCULAR: Regular rate and rhythm without murmurs, gallops, or rubs. RESPIRATORY: Clear to auscultation. Breath sounds equal bilaterally. No wheezes , rales, or rhonchi. GASTROINTESTINAL: Abdomen soft, non-tender, nondistended. No palpable masses. No guarding. MUSCULOSKELETAL: Extremities without clubbing, cyanosis, or edema. No joint tenderness, effusion, or edema noted. No calf tenderness. Bilateral patellar reflex 2/4, normal. NEUROLOGICAL: Awake and alert. Cranial nerves II through XII intact. Motor and sensory grossly within normal limits. Five out of 5 muscle strength in all muscle groups. Normal speech. Laboratory Laboratory Tests Test 04/29/17 08:35 Blood Urea Nitrogen 13 Creatinine 0.98 Random Glucose 149 Calcium Level 9.3 Sodium Level 138 Potassium Level 3.9 Chloride Level 103 Carbon Dioxide Level 26.2 Anion Gap 9 Estimat Glomerular Filtration Rate 72 Triglycerides Level 185 Cholesterol Level 136 LDL Cholesterol 55 HDL Cholesterol 44.1 Cholesterol/HDL Ratio 3.08 Result Diagram: 04/29/17 0835 Assessment and Plan Assessment and Plan 52-year-old -[place] female with past medical history significant for hypertension, hyperlipidemia, asthma, anxiety, depression, bipolar disorder, and eczema who presents to [facility] psychiatry as a transfer from another facility. Medical team has consulted to assist with medical management and chronic facial rash. Rash/eczema - Rash appears to be more self inflicted as patient repots scratching at skin constantly, neurogenic eczema. No primary lesion seen on exam. - Looking back through EMR, pathology report dated 04/07/12 of right shoulder biopsy demonstrates nummular/contact dermatitis. (possibly related on current eczema) -Benadryl cream as needed, discussed the importance of not scratching. Headaches - Similar to headaches she has had in the past, will monitor and treat with Tylenol for the moment HTN - BP slightly elevated goal of BP <140/90 since she is a diabetic. -Restart patient on amlodipine 5 mg, continue monitoring blood pressure DM II - Continue patients Metformin for now, Hemoglobin A1C pending - Switch diet to ADA - ISS with coverage. Bilateral leg paresthesia - Likely neuropathy, will monitor BS, consider adding gabapentin. Chest pain on exertion - Ongoing for the past week, does not follow up with dry charge process attendant - Patient is no Plavix, although denied cardiac history. - Obtain EKG, and troponin -Obtain medical records from PCP and facility where patient was transferred from. - Consider cardiology consult HLD - Continue Lipitor DVT prophylaxis-ambulating Discussed Condition With This note was transcribed by lilia Woods. I, Dr. Archie Remy personally performed the history, physical exam, and medical decision making; and confirmed the accuracy of the information in the transcribed note. Authenticated by Dr. Archie Remy on 04/29/17 at 18:50. Benito Woods Apr 29, 2017 15:16 Archie Remy MD Apr 29, 2017 18:51
[2017-04-29 15:59] LABS: HEMOGLOBIN A1C 6.6 % (4.3-6.0)
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
[2017-04-29] MEDS: metFORMIN HCL 500 MG TAB PO SCH (16:57)
[2017-04-29] MEDS: INSULIN ASPART SUPPLEMENTAL SCALE SQ SCH ×2 (16:57→20:49)
[2017-04-29] MEDS ORDERED: GLUCAGON 1 MG/ML VIAL OTHER PRN (17:00)
[2017-04-29] MEDS ORDERED: DEXTROSE 50% IN WATER 50 ML VIAL(D50) IV PUSH PRN (17:00)
[2017-04-29 18:40] VITALS: BP 154/78; PULSE 85; RESP 17; TEMP 97.1; O2SAT 98
[2017-04-29 18:50] LABS: TROPONIN I 0.06 NG/ML (0.02-0.05)
[2017-04-29] MEDS: QUEtiapine FUMARATE 100 MG TAB PO SCH (20:23)
[2017-04-29] MEDS: ATORVASTATIN 40 MG TAB PO SCH (20:23)
[2017-04-29] MEDS: REMOVE OLD NICODERM (NICOTINE) PATCH T-DERMAL SCH (20:50)
[2017-04-30 06:02] VITALS: BP 159/75; PULSE 92; RESP 18; TEMP 96.7; O2SAT 97
[2017-04-30] MEDS: INSULIN ASPART SUPPLEMENTAL SCALE SQ SCH ×4 (08:00→21:00)
[2017-04-30] MEDS: NICOTINE 21 MG/24 HR PATCH T-DERMAL SCH (09:00)
[2017-04-30] MEDS ORDERED: amLODIPine BESYLATE 5 MG TAB PO SCH (09:00)
[2017-04-30] MEDS: CLOPIDOGREL 75 MG TAB PO SCH (09:36)
[2017-04-30] MEDS: DIVALPROEX DR 500 MG TABEC PO SCH ×2 (09:37→21:00)
[2017-04-30] MEDS: metFORMIN HCL 500 MG TAB PO SCH ×2 (09:37→16:52)
[2017-04-30] MEDS: QUEtiapine FUMARATE 25 MG TAB PO SCH ×2 (09:37→16:00)
[2017-04-30 09:39] VITALS: BP 164/81; PULSE 91; RESP 18; TEMP 97.5; O2SAT 98
[2017-04-30] MEDS: ACETAMINOPHEN 325 MG TAB PO PRN ×2 (09:42→21:02)
[2017-04-30 09:48] VITALS: BP 164/81; PULSE 91; RESP 20; TEMP 97.5; O2SAT 98
[2017-04-30] MEDS ORDERED: amLODIPine BESYLATE 5 MG TAB PO ONE (12:00)
--- NOTE | 2017-04-30 12:03 | HHI.PYPN ---
Subjective Remarks Pt seen and discussed with staff. She has been compliant with medications. She has remained labile and impulsive. Staff report that pt was found sitting on the floor and c/o of a fall. She was evaluated by medical team and no injurious were sustained. Staff report that pt was later seen jogging on unit and then asked for pain pills. She denies HI but told RN today that she still "would hurt that lady" if she saw her. She reports that she stopped taking psychiatric medications because she was "tired of them". She states that mood is better since resuming medications in hospital. Mental Status Examination Appearance: Appropriate, Well dressed/well groomed Consciousness: Alert Orientation: x4 Motor Activity: Normal gait Speech: Unremarkable Language: Adequate Fund of Knowledge: Inadequate Attention and Concentration: Adequate Memory: Unremarkable Mood: Sad, Anxious Affect: Sad, Anxious Thought Process & Associations: Linear Thought Content: Hallucinations Hallucination Type: Auditory Suicidal Ideation: No (denies today) Suicidal Plan: No Suicidal Intention: No Homicidal Ideation: Yes Homicidal Plan: No Homicidal Intention: No Insight: Fair Judgment: Poor Results Labs Test 04/29/17 17:49 Total Creatine Kinase 46 U/L Troponin I 0.06 NG/ML Vitals/IOs Vital Signs Date Time Temp Pulse Resp B/P (MAP) Pulse Ox O2 Delivery O2 Flow Rate FiO2 04/30/17 09:48 97.5 91 20 164/81 (108) 98 Assessment & Plan Problem List: (1) Schizoaffective disorder ICD Codes: F25.9 - Schizoaffective disorder, unspecified Status: Acute Assessment & Plan Continue current tx plan. Estimated LOS: days Justification for Cont. Inpt. impairments in reality testing and safety Problem Qualifiers (1) Schizoaffective disorder: Qualified Codes: F25.1 - Schizoaffective disorder, depressive type Shy Borden MD Apr 30, 2017 12:03
--- NOTE | 2017-04-30 12:13 | HHI.PR ---
Subjective Remarks Follow up visit for eczema, HTN, DM, and neuropathy. Spoke with nurse who states patient fell this AM around 9am while stepping out to the shower. Spoke with patient who states she in the shower and landed on back/left side and states she hit the back of her head. Complains of left hip soreness, took Tylenol. Headaches on and off, same as what she has been having, no changes. Sates she is on Plavix when she had a stroke and had right sided weakness. Objective Vitals Vital Signs Date Time Temp Pulse Resp B/P (MAP) Pulse Ox O2 Delivery O2 Flow Rate FiO2 04/30/17 09:48 97.5 91 20 164/81 (108) 98 04/30/17 09:39 97.5 91 18 164/81 (108) 98 04/30/17 06:02 96.7 92 18 159/75 (103) 97 04/29/17 18:40 97.1 85 17 154/78 (103) 98 Result Diagram: 04/29/17 0835 Objective Remarks GENERAL: This is an obese, well-developed -Vietnamese female, in no apparent distress. SKIN: Discolored areas with healing sustainability manager pigmented scabs surrounding bilateral ears, base of head and right upper neck area. Open to air, no redness , or drainage noted. Cool and dry. HEAD: Normocephalic. No visible trauma noted. EYES: Pupils equal round and reactive. Extraocular motions intact. ENT: Nose without bleeding. Airway patent. NECK: Trachea midline. No JVD CARDIOVASCULAR: Regular rate and rhythm without murmurs, gallops, or rubs. RESPIRATORY: Clear to auscultation. Breath sounds equal bilaterally. No wheezes , rales, or rhonchi. GASTROINTESTINAL: Abdomen soft, non-tender, nondistended. No palpable masses. No guarding. MUSCULOSKELETAL: Extremities without clubbing, cyanosis, or edema. No joint tenderness, effusion, or edema noted. NEUROLOGICAL: Awake and alert. Cranial nerves II through XII intact. Motor and sensory grossly within normal limits. Ambulating with out assistance, able to get in and out of chair on first attempt no assistance. Five out of 5 muscle strength in all muscle groups. Normal speech. A/P Problem List: (1) Eczema ICD Code: L30.9 - Dermatitis, unspecified (2) HTN (hypertension) ICD Code: I10 - Essential (primary) hypertension (3) Diabetes mellitus ICD Code: E11.9 - Type 2 diabetes mellitus without complications (4) Neuropathy ICD Code: G62.9 - Polyneuropathy, unspecified (5) Chronic headaches ICD Code: R51 - Headache (6) Chest pain, exertional ICD Code: R07.9 - Chest pain, unspecified Assessment and Plan 52-year-old -Vietnamese female with past medical history significant for hypertension, hyperlipidemia, asthma, anxiety, depression, bipolar disorder, and eczema who presents to [facility] psychiatry as a transfer from another facility. Medical team has consulted to assist with medical management and chronic facial rash. Fall - No visible trauma, ambulating without difficulties. - Tylenol for pain as needed, continue monitor, non-slip shoes/socks Rash/eczema - Rash appears to be more self inflicted as patient repots scratching at skin constantly, neurogenic eczema. No primary lesion seen on exam. - Looking back through EMR, pathology report dated 04/07/12 of right shoulder biopsy demonstrates nummular/contact dermatitis. (possibly related on current eczema) -Benadryl cream as needed, discussed the importance of not scratching. Headaches - Similar to headaches she has had in the past, Tylenol as needed. CVA hx - No residual weakness noted, continue Plavix, and Lipitor, work on better BP control HTN, uncontrolled - BP elevated goal of BP <140/90 since she is a diabetic. - Increase Amlodipine to 10mg daily, continue monitoring BP DM II - Continue patients Metformin, Hemoglobin A1C 6.6 - Continue ADA - ISS with coverage. Neuropathy - Start gabapentin 100mg TID, monitor response Chest pain on exertion - Ongoing for the past week, does not follow up with program support assistant - EKG reviewed, NSR, non-specific T-wave abnormality - troponin 0.06 - Obtain medical records from [facility], medical records in chart only pertain to mental health - Consult cardiology, appreciate recommendations. HLD - Continue Lipitor DVT prophylaxis-ambulating Discussed with nurse. Benito Woods Apr 30, 2017 12:13
[2017-04-30] MEDS: GABAPENTIN 100 MG CAP PO SCH ×2 (12:56→17:02)
[2017-04-30] MEDS: HYDROCHLOROTHIAZIDE 25 MG TAB PO SCH (18:45)
--- NOTE | 2017-04-30 19:34 | MB ---
cc: NICK CASTRO M.D. DATE OF CONSULTATION: 04/30/2017. REASON FOR CONSULTATION: Chest pain. HISTORY OF PRESENT ILLNESS: Mrs. Head is a 52-year-old -Micronesian female with history of high blood pressure who smokes a couple of cigarettes a day and drinks three 16-ounce beers once in a while with history of bipolar disorder and PTSD with a previous psychiatric admission who was admitted due to schizophrenic disorder. During hospitalization, the patient developed chest pain. I was consulted for evaluation and management. The chart was reviewed. The patient was evaluated. ALLERGIES: None. SOCIAL HISTORY: As mentioned before, she smokes a couple of cigarettes a day and drinks a couple of beers once in a while. FAMILY HISTORY: There is a strong family history of coronary artery disease but the brother at 49 due a heart attack and the mother around 60 due to acute coronary syndrome. MEDICATIONS: Currently she is on the following medications: 1.Acetaminophen. 2. Norvasc 10 milligrams a day. 3. Lipitor 40 milligrams a day. 4. Plavix 75 milligrams a day. 5. Depakote ER 500 milligrams twice a day. 6. Neurontin 100 milligrams three times a day. 7. Metformin 500 milligrams twice a day. 8. Seroquel 100 milligrams at bedtime. REVIEW OF SYSTEMS: She refers currently no chest pain and no chest discomfort but chest pain on activity. No fever. PHYSICAL EXAMINATION: GENERAL: Alert, fully oriented. VITAL SIGNS: Her blood pressure is 164/81, pulse 91, respiratory rate 20. LUNGS: Ventilated. CARDIOVASCULAR: S1 and S2. No gallop. No murmur. ABDOMEN: Abdomen soft, no mass. No bruits. EXTREMITIES: No edema. EKGS: Electrocardiogram shows sinus rhythm and diffuse S-T changes. LABORATORY DATA: Potassium 3.90, creatinine 0.98. Troponin 0.06. HDL 44. CBC not available. ASSESSMENT AND RECOMMENDATION: Mrs. Head has morbid obesity, diabetes mellitus, high blood pressure, hyperlipidemia. She has a previous CVA with right leg weakness. She has a strong family history of coronary artery disease. She is morbidly obese. She complained about chest tightness. A nuclear stress study and echo will be ordered. Based on the study, further decision will be taken. Her blood pressure is high despite increasing the amlodipine to 10 mg a day. I am going to add hydrochlorothiazide 25 milligrams a day. The patient will be closely monitored during hospitalization. The case was discussed with the patient. MD LUZ Roberson/DANIELLE /6:31 PM /7:10 PM
[2017-04-30 21:00] VITALS: BP 136/78; PULSE 88; RESP 18; TEMP 98; O2SAT 97
[2017-04-30] MEDS: ATORVASTATIN 40 MG TAB PO SCH (21:00)
[2017-04-30] MEDS: REMOVE OLD NICODERM (NICOTINE) PATCH T-DERMAL SCH (21:00)
[2017-04-30] MEDS: QUEtiapine FUMARATE 100 MG TAB PO SCH (21:01)
--- NOTE | 2017-04-30 23:54 | EKG ---
Date Performed: 04/29/2017 Time Performed: 17:14:12 PTAGE: 52 years EKG: Sinus rhythm NONSPECIFIC T-WAVE ABNORMALITY BORDERLINE ECG NO PREVIOUS TRACING DOCTOR: Rui León Interpretating Date/Time 04/30/2017 23:52:43
[2017-05-01 04:55] VITALS: BP 132/76; PULSE 78; TEMP 98
[2017-05-01] MEDS: diphenhydrAMINE HCL 2%/ZINC ACETATE 0.1% CREAM 30 APPLIC/30 GM TUBE TOPICAL PRN ×2 (05:32→20:07)
[2017-05-01 05:42] VITALS: BP 154/81; PULSE 80; RESP 18; TEMP 97; O2SAT 98
[2017-05-01] MEDS: ACETAMINOPHEN 325 MG TAB PO PRN ×2 (06:34→20:07)
[2017-05-01] MEDS: INSULIN ASPART SUPPLEMENTAL SCALE SQ SCH ×3 (08:00→16:00)
[2017-05-01] MEDS: NICOTINE 21 MG/24 HR PATCH T-DERMAL SCH (09:00)
[2017-05-01] MEDS: HYDROCHLOROTHIAZIDE 25 MG TAB PO SCH (09:27)
[2017-05-01] MEDS: DIVALPROEX DR 500 MG TABEC PO SCH ×2 (09:27→20:08)
[2017-05-01] MEDS: GABAPENTIN 100 MG CAP PO SCH ×3 (09:27→18:00)
[2017-05-01] MEDS: CLOPIDOGREL 75 MG TAB PO SCH (09:28)
[2017-05-01] MEDS: QUEtiapine FUMARATE 25 MG TAB PO SCH ×2 (09:29→16:00)
[2017-05-01] MEDS: metFORMIN HCL 500 MG TAB PO SCH ×2 (09:32→18:00)
--- NOTE | 2017-05-01 11:19 | HHI.PYPN ---
Subjective Remarks Pt seen and discussed with staff. She has been more irritable in milieu and has been seclusive to her room because "they are all crazy!" . She has been compliant with medications. No aggression. She denies SI/HI and has not been making statements. She complains of poor sleep last night. No medication side effects. Mental Status Examination Appearance: Appropriate, Well dressed/well groomed Consciousness: Alert Orientation: x4 Motor Activity: Normal gait Speech: Unremarkable Language: Adequate Fund of Knowledge: Inadequate Attention and Concentration: Adequate Memory: Unremarkable Mood: Sad, Anxious Affect: Sad, Anxious Thought Process & Associations: Linear Thought Content: Hallucinations Hallucination Type: Auditory Suicidal Ideation: No (denies today) Suicidal Plan: No Suicidal Intention: No Homicidal Ideation: No Homicidal Plan: No Homicidal Intention: No Insight: Fair Judgment: Poor Results Vitals/IOs Vital Signs Date Time Temp Pulse Resp B/P (MAP) Pulse Ox O2 Delivery O2 Flow Rate FiO2 05/01/17 05:42 97.0 80 18 154/81 (105) 98 Assessment & Plan Problem List: (1) Schizoaffective disorder ICD Codes: F25.9 - Schizoaffective disorder, unspecified Status: Acute Assessment & Plan Pt improving. Continue seroquel titration. Estimated LOS: days Justification for Cont. Inpt. impairments in reality testing, monitoring for safety Problem Qualifiers (1) Schizoaffective disorder: Qualified Codes: F25.1 - Schizoaffective disorder, depressive type Shy Borden MD May 01, 2017 11:19
[2017-05-01] MEDS: LIDOCAINE HCL 5% PATCH T-DERMAL SCH (15:00)
[2017-05-01] MEDS ORDERED: LACTULOSE SYRUP 20 GM/30 ML CUP PO ONE (15:00)
--- NOTE | 2017-05-01 15:16 | HHI.PR ---
Subjective Remarks Follow-up visit for eczema, HTN, DM, neuropathy, and angina. Patient seen and examined in her room, she continues to complain of lest sided hip soreness. Repots helps some, denies any fevers, chills, nausea, vomiting or diarrhea. She repots her last BM three days ago, denies any abdominal pain. She also tells me that the heart doctor was in to see her and she will be having a stress test done. She is aware that she can't have caffein prior to the test. Patient has been using Benadryl ointment for and repots this has helped with itching. Spoke with nurse who does not have any concerns. Objective Vitals Vital Signs Date Time Temp Pulse Resp B/P (MAP) Pulse Ox O2 Delivery O2 Flow Rate FiO2 05/01/17 05:42 97.0 80 18 154/81 (105) 98 05/01/17 04:55 98.0 78 132/76 (94) 04/30/17 21:00 98.0 88 18 136/78 (97) 97 Result Diagram: 04/29/17 0835 Objective Remarks GENERAL: This is an obese, well-developed -Estonian female, in no apparent distress. SKIN: Discolored areas with healing detective and intelligence analyst pigmented scabs surrounding bilateral ears, base of head and right upper neck area. Open to air, no redness , or drainage noted. Cool and dry. HEAD: Normocephalic. No visible trauma noted. EYES: Pupils equal round and reactive. Extraocular motions intact. ENT: Nose without bleeding. Airway patent. NECK: Trachea midline. No JVD CARDIOVASCULAR: Regular rate and rhythm without murmurs, gallops, or rubs. RESPIRATORY: Clear to auscultation. Breath sounds equal bilaterally. No wheezes , rales, or rhonchi. GASTROINTESTINAL: Abdomen soft, non-tender, nondistended. No palpable masses. No guarding. MUSCULOSKELETAL: Extremities without clubbing, cyanosis, or edema. No joint tenderness, effusion, or edema noted. Left sided hip with no open sores, or ecchymosis noted. NEUROLOGICAL: Awake and alert. Cranial nerves II through XII grossly intact. Motor and sensory grossly within normal limits. Ambulating with out assistance, able to get in and out of chair on first attempt no assistance. Normal speech. A/P Problem List: (1) Eczema ICD Code: L30.9 - Dermatitis, unspecified (2) HTN (hypertension) ICD Code: I10 - Essential (primary) hypertension (3) Diabetes mellitus ICD Code: E11.9 - Type 2 diabetes mellitus without complications (4) Neuropathy ICD Code: G62.9 - Polyneuropathy, unspecified (5) Chronic headaches ICD Code: R51 - Headache (6) Chest pain, exertional ICD Code: R07.9 - Chest pain, unspecified Assessment and Plan 52-year-old -Estonian female with past medical history significant for hypertension, hyperlipidemia, asthma, anxiety, depression, bipolar disorder, and eczema who presents to [facility] as a transfer from another facility. Medical team has consulted to assist with medical management and chronic facial rash. Fall - No visible trauma, ambulating without difficulties. - Tylenol for pain as needed, non-slip shoes/socks - Will add Lidoderm patch for pain. Rash/eczema - Rash appears to be more self inflicted as patient repots scratching at skin constantly, neurogenic eczema. No primary lesion seen on exam. - Looking back through EMR, pathology report dated 04/07/12 of right shoulder biopsy demonstrates nummular/contact dermatitis. (possibly related on current eczema) - Benadryl cream as needed, patient repots this has reduced itching. Headaches - Similar to headaches she has had in the past, Tylenol as needed. CVA hx - No residual weakness noted, continue Plavix, and Lipitor, work on better BP control HTN, uncontrolled - BP elevated goal of BP <140/90 since she is a diabetic. - Continue Amlodipine to 10mg daily, hydrochlorothiazide 25mg QD added by cardiology. First dose this AM after BP reading - Continue monitoring BP and adjust medications as needed. DM II - Continue patients Metformin, Hemoglobin A1C 6.6 - Continue ADA - ISS with coverage, BS have been well controlled, will decrease Accu-checks to BID Neuropathy - Continue gabapentin 100mg TID Chest pain on exertion - Ongoing for the past week, does not follow up with school admissions representative - EKG reviewed, NSR, non-specific T-wave abnormality - troponin 0.06 - Obtain medical records from [facility], medical records in chart only pertain to mental health - has seen patient, plan for MPI, checking 2D echo as well, appreciate evaluation and recommendations. HLD - Continue Lipitor Constipation - Lactulose X1 now and Cat-colace QD DVT prophylaxis-ambulating Discussed with nurse. Benito Woods May 01, 2017 15:16
[2017-05-01 16:00] VITALS: BP 159/85; PULSE 81; RESP 17; TEMP 97.1; O2SAT 97
[2017-05-01] MEDS: QUEtiapine FUMARATE 100 MG TAB PO SCH (20:07)
[2017-05-01] MEDS: ATORVASTATIN 40 MG TAB PO SCH (20:08)
[2017-05-01] MEDS: REMOVE OLD NICODERM (NICOTINE) PATCH T-DERMAL SCH (20:08)
[2017-05-01] MEDS: diphenhydrAMINE HCL 50 MG CAP PO PRN (22:12)
[2017-05-02 05:42] VITALS: BP 148/63; PULSE 75; RESP 17; TEMP 97.7; O2SAT 97
[2017-05-02] MEDS: INSULIN ASPART SUPPLEMENTAL SCALE SQ SCH ×2 (06:00→16:00)
[2017-05-02] MEDS: NICOTINE 21 MG/24 HR PATCH T-DERMAL SCH (09:00)
[2017-05-02] MEDS: HYDROCHLOROTHIAZIDE 25 MG TAB PO SCH (09:00)
[2017-05-02] MEDS: REMOVE OLD PATCH T-DERMAL SCH (09:00)
[2017-05-02] MEDS: LIDOCAINE HCL 5% PATCH T-DERMAL SCH (09:00)
[2017-05-02] MEDS: GABAPENTIN 100 MG CAP PO SCH ×3 (09:19→17:52)
[2017-05-02] MEDS: metFORMIN HCL 500 MG TAB PO SCH ×2 (09:19→17:52)
[2017-05-02] MEDS: QUEtiapine FUMARATE 25 MG TAB PO SCH ×2 (09:19→16:23)
[2017-05-02] MEDS: DIVALPROEX DR 500 MG TABEC PO SCH ×2 (09:19→21:19)
[2017-05-02] MEDS: CLOPIDOGREL 75 MG TAB PO SCH (09:20)
[2017-05-02] MEDS: DOCUSATE SODIUM 50 MG/SENNA 8.6 MG TAB PO SCH (09:21)
[2017-05-02] MEDS ORDERED: LISINOPRIL 20 MG TAB PO ONE (09:30)
--- NOTE | 2017-05-02 13:42 | HHI.PR ---
Subjective Remarks Follow-up visit for eczema, HTN, DM, neuropathy, and angina. Continues to complain of ongoing left hip pain, discussed with nurse. Patient was also suppose to have nuclear stress test done this AM, however there was a mixup and she will have this done tomorrow. Patient also states that she has been having vaginal itching for the past 2 days. White/yellow discharge, no foul odor, denies dysuria, hematuria, frequency or hesitancy. She believes this may be a yeast infection, denies abdominal pain or discomfort. Objective Vitals Vital Signs Date Time Temp Pulse Resp B/P (MAP) Pulse Ox O2 Delivery O2 Flow Rate FiO2 05/02/17 05:42 97.7 75 17 148/63 (91) 97 05/01/17 16:00 97.1 81 17 159/85 (109) 97 Result Diagram: 04/29/17 0835 Objective Remarks GENERAL: This is an obese, well-developed -Burkinan female, in no apparent distress. SKIN: Discolored areas with healing mower operator pigmented scabs surrounding bilateral ears, base of head and right upper neck area. Open to air, no redness , or drainage noted. Cool and dry. HEAD: Normocephalic. EYES: Pupils equal round and reactive. Extraocular motions intact. ENT: Nose without bleeding. Airway patent. NECK: Trachea midline. No JVD CARDIOVASCULAR: Regular rate and rhythm without murmurs, gallops, or rubs. RESPIRATORY: Clear to auscultation. Breath sounds equal bilaterally. No wheezes , rales, or rhonchi. GASTROINTESTINAL: Abdomen soft, non-tender, nondistended. No palpable masses. No guarding. MUSCULOSKELETAL: Extremities without clubbing, cyanosis, or edema. No joint tenderness, effusion, or edema noted. Left sided hip with no open sores, or ecchymosis noted. NEUROLOGICAL: Awake and alert. Cranial nerves II through XII grossly intact. Motor and sensory grossly within normal limits. Ambulating with out assistance, able to get in and out of chair on first attempt no assistance. Normal speech. A/P Problem List: (1) Eczema ICD Code: L30.9 - Dermatitis, unspecified (2) HTN (hypertension) ICD Code: I10 - Essential (primary) hypertension (3) Diabetes mellitus ICD Code: E11.9 - Type 2 diabetes mellitus without complications (4) Neuropathy ICD Code: G62.9 - Polyneuropathy, unspecified (5) Chronic headaches ICD Code: R51 - Headache (6) Chest pain, exertional ICD Code: R07.9 - Chest pain, unspecified Assessment and Plan 52-year-old -Burkinan female with past medical history significant for hypertension, hyperlipidemia, asthma, anxiety, depression, bipolar disorder, and eczema who presents to [facility] psychiatry as a transfer from another facility. Medical team has consulted to assist with medical management and chronic facial rash. Fall - No visible trauma, ambulating without difficulties. - Tylenol for pain as needed, non-slip shoes/socks - Lidoderm patch for pain. - Ongoing pain, will check hip x-ray. Rash/eczema - Rash appears to be more self inflicted as patient repots scratching at skin constantly, neurogenic eczema. No primary lesion seen on exam. - Looking back through EMR, pathology report dated 04/07/12 of right shoulder biopsy demonstrates nummular/contact dermatitis. (possibly related on current eczema) - Benadryl cream as needed Headaches - Similar to headaches she has had in the past, Tylenol as needed. CVA hx - No residual weakness noted, continue Plavix, and Lipitor, work on better BP control HTN, uncontrolled - BP elevated goal of BP <140/90 since she is a diabetic. - Continue Amlodipine to 10mg daily, hydrochlorothiazide 25mg QD added by cardiology, add lisinopril 20mg daily - Continue monitoring BP and adjust medications as needed. DM II - Continue patients Metformin, Hemoglobin A1C 6.6 - Continue ADA - ISS with coverage, Accu-checks BID Neuropathy - Continue gabapentin 100mg TID Chest pain on exertion - Ongoing for the past week, does not follow up with grizzly worker - EKG reviewed, NSR, non-specific T-wave abnormality - troponin 0.06 - Obtain medical records from [facility], medical records in chart only pertain to mental health - has seen patient, plan for MPI, checking 2D echo as well, appreciate evaluation and recommendations. HLD - Continue Lipitor Constipation, resolved - Lactulose X1 now and Cat-colace QD - BM yesterday Vaginal candidiasis - Symptoms consistent with vaginal yeast infection. Diflucan 150mg X1 PO DVT prophylaxis-ambulating Discussed with nurse. Benito Woods May 02, 2017 13:42
[2017-05-02] MEDS ORDERED: FLUCONAZOLE 100 MG TAB PO ONE (13:45)
[2017-05-02] MEDS ORDERED: PILL SPLITTER OTHER PRN (13:45)
--- NOTE | 2017-05-02 15:04 | RADRPT ---
EXAM DATE/TIME: 05/02/2017 14:14 [facility] COMPARISON: No previous studies available for comparison. INDICATIONS : Left hip pain after fall three days ago. MEDICAL HISTORY : Hypertension. Asthma. Fibrous cysts. SURGICAL HISTORY : Appendectomy. ENCOUNTER: Initial ACUITY: 3 days PAIN SCORE: 10/10 LOCATION: Left hip. FINDINGS: Examination of the left hip was performed with AP Pelvis. The primary and secondary trabecular patte rn of the femoral neck is intact. The hip joint is of normal width without significant sclerosis or bony hypertrophy. The acetabulum is grossly intact. CONCLUSION: Negative for acute fracture. Robin Hameed MD FACR on May 02, 2017 at 15:01 Board Certified Radiologist. This report was verified electronically.
--- NOTE | 2017-05-02 16:17 | HHI.PYPN ---
Subjective Remarks Patient seen for follow, chart reviewed. Discussion nursing staff reported the patient had 2D echo done this morning schedule for pharmacological stress test the morning. Patient was found sitting in the room noted to be calm and cooperative. Patient states that she had been feeling "a little bit depressed" continues with auditory hallucinations but noted to be less frequent and less intense. Patient denies any suicidal homicidal ideations. Patient states that she is attempting to go to some groups as well. Patient did report some hip pain and reported having hip x-ray done today as well as planned stress test tomorrow which she agreed with. Review of Systems Except as stated in HPI: all other systems reviewed are Neg Mental Status Examination Appearance: Appropriate, Well dressed/well groomed Consciousness: Alert Orientation: x4 Motor Activity: Normal gait Speech: Unremarkable Language: Adequate Fund of Knowledge: Inadequate Attention and Concentration: Adequate Memory: Unremarkable Mood: Sad, Anxious Affect: Sad, Anxious Thought Process & Associations: Linear Thought Content: Hallucinations Hallucination Type: Auditory Suicidal Ideation: No (denies today) Suicidal Plan: No Suicidal Intention: No Homicidal Ideation: No Homicidal Plan: No Homicidal Intention: No Insight: Fair Judgment: Poor Results Labs labs reviewed Test 05/02/17 10:05 Valproic Acid (Depakene) Level 123 MCG/ML Vitals/IOs Vital Signs Date Time Temp Pulse Resp B/P (MAP) Pulse Ox O2 Delivery O2 Flow Rate FiO2 05/02/17 05:42 97.7 75 17 148/63 (91) 97 Assessment & Plan Problem List: (1) Schizoaffective disorder ICD Codes: F25.9 - Schizoaffective disorder, unspecified Status: Acute Assessment & Plan Patient continues to report feeling depressed along with continued auditory hallucinations but lessening in intensity. Patient denied any suicidal or homicidal ideations at this time. We will increase quetiapine to 50/50/300 milligrams, continue rest of medications. Hip x-ray was negative for any fractures. Patient scheduled for further cardiac workup tomorrow morning. We will order repeat VPA level tomorrow morning as recent blood draw was done after patient's first dose and therefore an inaccurate. Discharge planning in progress. Justification for Cont. Inpt. At risk for decompensation at lower level of care Problem Qualifiers (1) Schizoaffective disorder: Qualified Codes: F25.1 - Schizoaffective disorder, depressive type Jj Santos MD May 02, 2017 16:17
[2017-05-02 17:27] VITALS: BP 139/79; PULSE 83; RESP 18; TEMP 97; O2SAT 98
--- NOTE | 2017-05-02 19:01 | ECHRPT ---
Indication: angina CONCLUSIONS Normal left ventricular size. Estimated ejection fraction is 60-65% The left atrial size is upper limits of normal. [id number] mitral valve regurgitation. There is trace tricuspid valve regurgitation. BP: / HR: Rhythm: MEASUREMENTS (Male / Female) Normal Values Technical Quality:Good 2D ECHO LV Diastolic Diameter PLAX 5.4 cm 4.2 - 5.9 / 3.9 - 5.3 cm LV Systolic Diameter PLAX 3.8 cm IVS Diastolic Thickness 1.6 cm 0.6 - 1.0 / 0.6 - 0.9 cm LVPW Diastolic Thickness 1.1 cm 0.6 - 1.0 / 0.6 - 0.9 cm LV Relative Wall Thickness 0.5 RV Internal Dim ED PLAX 2.4 cm M-MODE Aortic Root Diameter MM 2.7 cm LA Systolic Diameter MM 4.0 cm LA Ao Ratio MM 1.5 AV Cusp Separation MM 1.7 cm DOPPLER LV E' Lateral Velocity 9.4 cm/s LV E' Septal Velocity 9.8 cm/s TR Peak Velocity 224.0 cm/s TR Peak Gradient 20.1 mmHg Right Atrial Pressure 10.0 mmHg Pulmonary Artery Systolic Pressu 30.1 mmHg Right Ventricular Systolic Press 30.1 mmHg FINDINGS LEFT VENTRICLE Normal left ventricular size. The left ventricular systolic function is normal with an estimated ejection fraction in the range of 60-65%. RIGHT VENTRICLE Normal right ventricular size and systolic function. LEFT ATRIUM The left atrial size is upper limits of normal. RIGHT ATRIUM The right atrial size is normal. ATRIAL SEPTUM Normal atrial septal thickness without atrial level shunting by limited color doppler interrogation. AORTA The aortic root and proximal ascending aorta are normal in size on limited imaging. MITRAL VALVE Structurally normal mitral valve. [id number] mitral valve regurgitation. AORTIC VALVE Trileaflet aortic valve. No aortic valve regurgitation. No aortic valve stenosis. TRICUSPID VALVE Structurally normal tricuspid valve. There is trace tricuspid valve regurgitation. PULMONARY VALVE No pulmonary valve regurgitation or stenosis. VESSELS The inferior vena cava is normal in size. PERICARDIUM No pericardial effusion. Shirin Wyatt MD, FACC (Electronically Signed) Final Date:02 May 2017 19:00
[2017-05-02] MEDS: REMOVE OLD NICODERM (NICOTINE) PATCH T-DERMAL SCH (21:00)
[2017-05-02] MEDS: QUEtiapine FUMARATE 100 MG TAB PO SCH (21:19)
[2017-05-02] MEDS: ATORVASTATIN 40 MG TAB PO SCH (21:20)
[2017-05-02] MEDS: diphenhydrAMINE HCL 50 MG CAP PO PRN (21:20)
[2017-05-03 05:35] VITALS: BP 115/74; PULSE 88; RESP 18; TEMP 97.8; O2SAT 99
[2017-05-03] MEDS: INSULIN ASPART SUPPLEMENTAL SCALE SQ SCH ×2 (06:11→16:00)
[2017-05-03] MEDS: DIVALPROEX DR 500 MG TABEC PO SCH ×2 (09:00→20:37)
[2017-05-03] MEDS: LISINOPRIL 20 MG TAB PO SCH (09:00)
[2017-05-03] MEDS: NICOTINE 21 MG/24 HR PATCH T-DERMAL SCH (09:00)
[2017-05-03] MEDS: HYDROCHLOROTHIAZIDE 25 MG TAB PO SCH (09:00)
[2017-05-03] MEDS: GABAPENTIN 100 MG CAP PO SCH ×3 (09:00→17:26)
[2017-05-03] MEDS: REMOVE OLD PATCH T-DERMAL SCH (09:00)
[2017-05-03] MEDS: DOCUSATE SODIUM 50 MG/SENNA 8.6 MG TAB PO SCH (09:00)
[2017-05-03] MEDS ORDERED: REGADENOSON INJ 0.4 MG/5 ML SYR IV ONE (11:53)
[2017-05-03] MEDS: metFORMIN HCL 500 MG TAB PO SCH ×2 (13:26→17:26)
[2017-05-03] MEDS: CLOPIDOGREL 75 MG TAB PO SCH ×2 (13:27→13:28)
[2017-05-03] MEDS: QUEtiapine FUMARATE 25 MG TAB PO SCH ×2 (13:28→15:37)
--- NOTE | 2017-05-03 13:52 | HHI.PYPN ---
Subjective Remarks Patient seen for follow, chart reviewed. Discussion nursing staff reported the patient had pharmacological stress test done this morning had been n.p.o. since and has not had a VPA levels drawn this morning. Patient was seen after having study done noted to be calm and cooperative. Patient states that her mood has been "better" reported having some difficulty with sleep last evening, denying perceptual disturbances or delusions at this time. He denies any suicidal or homicidal ideation. Review of Systems Except as stated in HPI: all other systems reviewed are Neg Mental Status Examination Appearance: Appropriate, Well dressed/well groomed Consciousness: Alert Orientation: x4 Motor Activity: Normal gait Speech: Unremarkable Language: Adequate Fund of Knowledge: Inadequate Attention and Concentration: Adequate Memory: Unremarkable Mood: Anxious Affect: Anxious Thought Process & Associations: Linear Thought Content: Hallucinations (Denies today) Hallucination Type: Auditory (Denies today) Suicidal Ideation: No (denies today) Suicidal Plan: No Suicidal Intention: No Homicidal Ideation: No Homicidal Plan: No Homicidal Intention: No Insight: Fair Judgment: Poor Results Vitals/IOs Vital Signs Date Time Temp Pulse Resp B/P (MAP) Pulse Ox O2 Delivery O2 Flow Rate FiO2 05/03/17 05:35 97.8 88 18 115/74 (88) 99 Assessment & Plan Problem List: (1) Schizoaffective disorder ICD Codes: F25.9 - Schizoaffective disorder, unspecified Status: Acute Assessment & Plan Patient this time noted to have improvement of mood although slightly irritable today but denies any perceptual disturbances or suicidal homicidal ideations. Patient continues with cardiac workup pending clearance. VPA level still pending. Continue to monitor mood and behavior. Discharge planning in progress Justification for Cont. Inpt. At risk for further decompensation if at lower level of care Discharge Planning Patient to be discharged to her brother's residence once medically and psychiatrically stable. Problem Qualifiers (1) Schizoaffective disorder: Qualified Codes: F25.1 - Schizoaffective disorder, depressive type Jj Santos MD May 03, 2017 13:52
[2017-05-03] MEDS: LIDOCAINE HCL 5% PATCH T-DERMAL SCH (14:07)
--- NOTE | 2017-05-03 14:44 | RADRPT ---
EXAM DATE/TIME: 05/03/2017 11:15 [place] COMPARISON: No previous studies available for comparison. INDICATIONS : Chest pain. DOSE: 31.2 mCi Tc99m Myoview at stress. 10.3 mCi Tc99m Myoview at rest. 0.4 mg Lexiscan STRESS SYMPTOMS: Nausea, dyspnea, and heart racing. EJECTION FRACTION: 60% MEDICAL HISTORY : Hypertension. Hypercholesterolemia. Stroke. Asthma. SURGICAL HISTORY : Appendectomy. ENCOUNTER: Initial ACUITY: 1 day PAIN SCALE: 5/10 LOCATION: chest TECHNIQUE: The patient underwent pharmacologic stress with infusion of prescribed dose. Continuous ECG tracing was monitored during stress. Gated SPECT imaging was performed after stress and conventional SPECT i maging was performed at rest. The examination was performed on a SPECT/CT scanner, both attenuation and non-corrected datasets were reviewed. FINDINGS: DISTRIBUTION: The maximum perfused segment at stress is in the inferior wall. PERFUSION STUDY: The pattern of perfusion at stress is within normal limits. GATED STUDY: There is intact wall motion and thickening without hypokinetic or dyskinetic segments. CONCLUSION: No reversible defects observed to suggest acute ischemia. RISK CATEGORY: Low Rene King Jr., MD on May 03, 2017 at 14:40 Board Certified Radiologist. This report was verified electronically.
[2017-05-03 15:29] VITALS: BP 136/66; PULSE 89; RESP 18; TEMP 97.8; O2SAT 97
--- NOTE | 2017-05-03 15:42 | PD.TTN ---
Patient Problems 1. Discharge planning 2. Medication compliance 3. Knowledge deficit 4. Lack of coping skills Progress Toward Goals Provider Present: Dr. Sadia Santos Provider Input: 05/02- Pt is back on her medication regiment and will continue to be evaluated. Nurse(s) Present: Delmis Herr RN Nurse(s) Input: Pt has been cooperative, pleasant, appropriate and medication compliant. Psychiatric Counselors Present: MAYR Grande Psych Therapist Input: Pt appears calm, cooperative, appropriate, organized and oriented. She appears with improving coping and emotional regulation skills. She presents with fair insight into condition and need for care. Pt has been compliant with medication regiment. Group Spec/RT/OT/TERRY Present: MARA Bowman Group Spec/RT/OT/TERRY Input: 05/02- Pt participates in ice cream group appropriately and is seclusive. Discharge Plan [facility] Pt will return to her brother's home after discharge and will continue to follow up with [facility]. Documentation Scribe: MARY Grande Teaching Recipient: Patient Rodolfo Geiger May 03, 2017 15:42
[2017-05-03] MEDS: ACETAMINOPHEN 325 MG TAB PO PRN (15:45)
[2017-05-03 18:43] VITALS: BP 125/70; PULSE 90; RESP 17; TEMP 97.6; O2SAT 99
[2017-05-03] MEDS: ATORVASTATIN 40 MG TAB PO SCH (20:38)
[2017-05-03] MEDS: QUEtiapine FUMARATE 100 MG TAB PO SCH (20:38)
[2017-05-03] MEDS: REMOVE OLD NICODERM (NICOTINE) PATCH T-DERMAL SCH (20:40)
[2017-05-04 06:07] VITALS: BP 127/61; PULSE 80; RESP 18; TEMP 97.8; O2SAT 97
[2017-05-04] MEDS: INSULIN ASPART SUPPLEMENTAL SCALE SQ SCH ×2 (06:07→16:00)
[2017-05-04] MEDS: ACETAMINOPHEN 325 MG TAB PO PRN (06:19)
[2017-05-04] MEDS: NICOTINE 21 MG/24 HR PATCH T-DERMAL SCH (09:00)
[2017-05-04] MEDS: REMOVE OLD PATCH T-DERMAL SCH (09:00)
[2017-05-04] MEDS: QUEtiapine FUMARATE 25 MG TAB PO SCH ×2 (09:03→16:00)
[2017-05-04] MEDS: DIVALPROEX DR 500 MG TABEC PO SCH ×2 (09:04→21:15)
[2017-05-04] MEDS: HYDROCHLOROTHIAZIDE 25 MG TAB PO SCH (09:04)
[2017-05-04] MEDS: LISINOPRIL 20 MG TAB PO SCH (09:04)
[2017-05-04] MEDS: GABAPENTIN 100 MG CAP PO SCH ×3 (09:04→19:07)
[2017-05-04] MEDS: CLOPIDOGREL 75 MG TAB PO SCH (09:04)
[2017-05-04] MEDS: metFORMIN HCL 500 MG TAB PO SCH ×2 (09:05→19:08)
[2017-05-04] MEDS: DOCUSATE SODIUM 50 MG/SENNA 8.6 MG TAB PO SCH (09:05)
[2017-05-04] MEDS: LIDOCAINE HCL 5% PATCH T-DERMAL SCH (09:08)
[2017-05-04] MEDS: hydrOXYzine HCL 50 MG TAB PO PRN ×2 (10:57→21:48)
--- NOTE | 2017-05-04 14:02 | HHI.PYPN ---
Subjective Remarks Patient seen for follow-up, chart reviewed. Discussion interests that reported the patient was reporting some back pain but continues on lidocaine patch. Patient denies any SI or HI. Patient was found there, cooperative. Patient reports that her mood has been somewhat down recently but denies any perceptual disturbances or any suicidal ideations. She continues to have some vague homicidal ideations regarding previous encounter during her last employ and states that is lessening now. She reports having some difficulty with sleep last evening despite taking Benadryl was not helpful. Patient continues to plan to return back to his residence once discharged. Review of Systems Except as stated in HPI: all other systems reviewed are Neg Mental Status Examination Appearance: Appropriate, Well dressed/well groomed Consciousness: Alert Orientation: x4 Motor Activity: Normal gait Speech: Unremarkable Language: Adequate Fund of Knowledge: Inadequate Attention and Concentration: Adequate Memory: Unremarkable Mood: Sad Affect: Sad Thought Process & Associations: Linear Thought Content: Hallucinations (Denies today) Hallucination Type: Auditory (Denies today) Suicidal Ideation: No (denies today) Suicidal Plan: No Suicidal Intention: No Homicidal Ideation: No Homicidal Plan: No Homicidal Intention: No Insight: Fair Judgment: Poor Results Labs Labs reviewed Test 05/03/17 15:53 Valproic Acid (Depakene) Level 78 MCG/ML Vitals/IOs Vital Signs Date Time Temp Pulse Resp B/P (MAP) Pulse Ox O2 Delivery O2 Flow Rate FiO2 05/04/17 06:07 97.8 80 18 127/61 (83) 97 Assessment & Plan Problem List: (1) Schizoaffective disorder ICD Codes: F25.9 - Schizoaffective disorder, unspecified Status: Acute Assessment & Plan Patient noted to have depressed mood recently but also having continued intermittent homicidal ideations. Continue current treatment, we will add trazodone 50 mg p.o. at bedtime for sleep disturbance. Patient continues to wait medical clearance from medical workup. Continue to monitor mood and behavior. Discharge planning in progress. Justification for Cont. Inpt. At risk of further decompensation of lower level of care Discharge Planning Back to brother's residence once medically and psychiatrically stable. Problem Qualifiers (1) Schizoaffective disorder: Qualified Codes: F25.1 - Schizoaffective disorder, depressive type Jj Santos MD May 04, 2017 14:02
--- NOTE | 2017-05-04 14:58 | HHI.PR ---
Subjective Remarks Follow-up visit eczema, HTN, DM, neuropathy, angina, left hip pain. Patient seen and examined today. Reports she is doing well. As per nursing, patient continues to complain of left hip pain. Discuss with patient results of imaging studies and nuclear stress tests. Verbalized understanding of results. States she continues to feel depressed and wanting to hurt others. No suicidal ideation. Otherwise, denies SOB/ dyspnea. Denies chest pain, palpitations, headaches, dizziness. Denies fevers, chills, n/v/d. Denies hematuria, dysuria. Objective Vitals Vital Signs Date Time Temp Pulse Resp B/P (MAP) Pulse Ox O2 Delivery O2 Flow Rate FiO2 05/04/17 06:07 97.8 80 18 127/61 (83) 97 05/03/17 18:43 97.6 90 17 125/70 (88) 99 05/03/17 15:29 97.8 89 18 136/66 (89) 97 I/O 05/03/17 05/03/17 05/03/17 05/04/17 05/04/17 05/04/17 07:00 15:00 23:00 07:00 15:00 23:00 Intake Total 240 ml Balance 240 ml Intake Oral 240 ml Imaging Last Impressions Myocardial Perfusion Scan Nuc Med 05/03/17 0000 Signed Impressions: Service Date/Time: Wednesday, May 03, 2017 11:15 - CONCLUSION: No reversible defects observed to suggest acute ischemia. RISK CATEGORY: Low Rene King Jr., MD Hip and Pelvis X-Ray 05/02/17 0000 Signed Impressions: Service Date/Time: Tuesday, May 02, 2017 14:14 - CONCLUSION: Negative for acute fracture. Robin Hameed MD FACR Objective Remarks GENERAL: This is an obese, well-developed patient, in no apparent distress. SKIN: Warm and dry. Discolored areas with healing stencil printer pigmented scabs surrounding bilateral ears, base of head and right upper neck area. Open to air , no redness, or drainage noted. HEENT: Normocephalic. Pupils equal round and reactive. Nose without bleeding. Airway patent. NECK: Trachea midline. No JVD. Supple. CARDIOVASCULAR: Regular rate and rhythm without murmurs, gallops, or rubs. RESPIRATORY: Clear to auscultation. Breath sounds equal bilaterally. No wheezes , rales, or rhonchi. GASTROINTESTINAL: Abdomen soft, non-tender, nondistended. Bowel Sounds normoactive x4. MUSCULOSKELETAL: Extremities without clubbing, cyanosis, or edema. Left sided hip with no open sores, or ecchymosis noted. NEUROLOGICAL: Awake and alert. Oriented to time, place, person. No focal neuro deficit. Moves all extremities. Normal speech. A/P Problem List: (1) Eczema ICD Code: L30.9 - Dermatitis, unspecified (2) HTN (hypertension) ICD Code: I10 - Essential (primary) hypertension (3) Diabetes mellitus ICD Code: E11.9 - Type 2 diabetes mellitus without complications (4) Neuropathy ICD Code: G62.9 - Polyneuropathy, unspecified (5) Chronic headaches ICD Code: R51 - Headache (6) Chest pain, exertional ICD Code: R07.9 - Chest pain, unspecified Assessment and Plan Patient is a 52-year-old -[place] female with past medical history significant for hypertension, hyperlipidemia, asthma, anxiety, depression, bipolar disorder, and eczema who presents to [place] inpatient [facility] as a transfer from another facility. Medical team has consulted to assist with medical management and chronic facial rash. Fall - No visible trauma, ambulating without difficulties. - Tylenol for pain as needed, non-slip shoes/socks - Lidoderm patch for pain. - Hip and pelvic x-ray showed negative for acute fracture - Patient able to ambulate Rash/eczema - Rash self inflicted, scratching at skin constantly, neurogenic eczema. No primary lesion seen on exam. - Looking back through EMR, pathology report dated 04/07/12 of right shoulder biopsy demonstrates nummular/contact dermatitis, possibly related to current eczema - Benadryl cream as needed. May benefit with hydrocortisone cream. CVA hx - No residual weakness noted, continue Plavix, and Lipitor, work on better BP control HTN, uncontrolled - BP elevated goal of BP <140/90 since she is a diabetic. - Continue Amlodipine to 10mg daily, hydrochlorothiazide 25mg QD added by cardiology, lisinopril 20mg daily - BP trend improved DM II - Continue patients Metformin, Hemoglobin A1C 6.6 - Continue ADA - ISS with coverage, Accu-checks BID Neuropathy - Continue gabapentin 100mg TID Chest pain on exertion - EKG reviewed, NSR, non-specific T-wave abnormality - troponin 0.06 - Obtain medical records from [facility], medical records in chart only pertain to mental health - has seen patient, MPI, 2D echo - MB showed no reversible defects of surgery to suggest acute ischemia. - 2-D echo showed normal left ventricular size with ejection fraction 60-65% - Denies any complaints of chest pain HLD - Continue Lipitor Vaginal candidiasis - Diflucan 150mg X1 PO given - No symptoms reported DVT prophylaxis-ambulating Stable from Hospitalist standpoint. We will sign off. Reconsult as needed. Bear Henning May 04, 2017 14:58
[2017-05-04] MEDS ORDERED: PADIMATE (CHAPSTICK) 4.5 GM TUBE TOPICAL PRN (15:30)
[2017-05-04 16:45] VITALS: BP 145/63; PULSE 90; RESP 18; TEMP 98.1; O2SAT 98
[2017-05-04] MEDS: TRIAMCINOLONE ACETONIDE 0.1% CREAM 15 GM TOPICAL SCH (21:00)
[2017-05-04] MEDS ORDERED: traZODone HCL 50 MG TAB PO PRN (21:00)
[2017-05-04] MEDS: REMOVE OLD NICODERM (NICOTINE) PATCH T-DERMAL SCH (21:00)
[2017-05-04] MEDS: ATORVASTATIN 40 MG TAB PO SCH (21:16)
[2017-05-04] MEDS: QUEtiapine FUMARATE 100 MG TAB PO SCH (21:16)
[2017-05-05] MEDS: hydrOXYzine HCL 50 MG TAB PO PRN ×2 (03:36→20:26)
[2017-05-05 05:53] VITALS: BP 127/58; PULSE 83; RESP 16; TEMP 98.1; O2SAT 98
[2017-05-05] MEDS: INSULIN ASPART SUPPLEMENTAL SCALE SQ SCH ×2 (06:49→16:00)
[2017-05-05] MEDS: NICOTINE 21 MG/24 HR PATCH T-DERMAL SCH (09:00)
[2017-05-05] MEDS: REMOVE OLD PATCH T-DERMAL SCH (09:00)
[2017-05-05] MEDS: DOCUSATE SODIUM 50 MG/SENNA 8.6 MG TAB PO SCH (09:10)
[2017-05-05] MEDS: LISINOPRIL 20 MG TAB PO SCH (09:10)
[2017-05-05] MEDS: GABAPENTIN 100 MG CAP PO SCH ×3 (09:10→17:02)
[2017-05-05] MEDS: TRIAMCINOLONE ACETONIDE 0.1% CREAM 15 GM TOPICAL SCH ×2 (09:10→20:26)
[2017-05-05] MEDS: DIVALPROEX DR 500 MG TABEC PO SCH ×2 (09:10→20:24)
[2017-05-05] MEDS: metFORMIN HCL 500 MG TAB PO SCH ×2 (09:11→17:02)
[2017-05-05] MEDS: QUEtiapine FUMARATE 25 MG TAB PO SCH ×2 (09:11→17:02)
[2017-05-05] MEDS: CLOPIDOGREL 75 MG TAB PO SCH (09:11)
[2017-05-05] MEDS: HYDROCHLOROTHIAZIDE 25 MG TAB PO SCH (09:11)
[2017-05-05] MEDS: LIDOCAINE HCL 5% PATCH T-DERMAL SCH (09:16)
[2017-05-05 17:15] VITALS: BP 121/67; PULSE 91; RESP 17; TEMP 97.5; O2SAT 96
--- NOTE | 2017-05-05 17:38 | HHI.PYPN ---
Subjective Remarks Patient seen for follow-up, chart reviewed. Patient was found there is noted calm and cooperative. Patient reports feeling increasingly depressed today as well as having resurgence of auditory hallucinations of voices telling her to kill the person who was involved in her brother's . Patient reports having had a nightmare last evening regarding her brother's passing. Patient reports that he had difficulty with sleep last evening as well. Patient denies suicidal ideations at this time. Review of Systems Except as stated in HPI: all other systems reviewed are Neg Mental Status Examination Appearance: Appropriate, Well dressed/well groomed Consciousness: Alert Orientation: x4 Motor Activity: Normal gait Speech: Unremarkable Language: Adequate Fund of Knowledge: Inadequate Attention and Concentration: Adequate Memory: Unremarkable Mood: Sad Affect: Sad Thought Process & Associations: Linear Thought Content: Hallucinations Hallucination Type: Auditory (command) Suicidal Ideation: No (denies today) Suicidal Plan: No Suicidal Intention: No Homicidal Ideation: No Homicidal Plan: No Homicidal Intention: No Insight: Fair Judgment: Poor Results Vitals/IOs Vital Signs Date Time Temp Pulse Resp B/P (MAP) Pulse Ox O2 Delivery O2 Flow Rate FiO2 05/05/17 17:15 97.5 91 17 121/67 (85) 96 Assessment & Plan Problem List: (1) Schizoaffective disorder ICD Codes: F25.9 - Schizoaffective disorder, unspecified Status: Acute Assessment & Plan Patient this time noted to have depressed mood that is increasing. With no suicidal ideations but has having command auditory hallucination telling him to kill depression involving her brother's . We will increase quetiapine 350mg at bedtime. Please trazodone 50 mg p.o. at bedtime and standing to assist with sleep disturbance. Continue with the medications. Continue to monitor mood and behavior. Patient pending results of clearance from a cardiac workup. Discharge planning in progress. Justification for Cont. Inpt. At risk for further decompensation at lower level of care. Discharge Planning Patient return back to her residence but also expressing interest and engagement in rehabilitation program for substance use. Problem Qualifiers (1) Schizoaffective disorder: Qualified Codes: F25.1 - Schizoaffective disorder, depressive type Jj Santos MD May 05, 2017 17:38
[2017-05-05] MEDS: ATORVASTATIN 40 MG TAB PO SCH (20:26)
[2017-05-05] MEDS: traZODone HCL 50 MG TAB PO SCH (21:00)
[2017-05-05] MEDS ORDERED: QUEtiapine FUMARATE 100 MG TAB PO SCH (21:00)
[2017-05-05] MEDS: REMOVE OLD NICODERM (NICOTINE) PATCH T-DERMAL SCH (21:00)
[2017-05-06 06:01] VITALS: BP 113/63; PULSE 77; RESP 18; TEMP 98.4; O2SAT 97
[2017-05-06] MEDS: INSULIN ASPART SUPPLEMENTAL SCALE SQ SCH ×2 (06:40→16:31)
[2017-05-06] MEDS: NICOTINE 21 MG/24 HR PATCH T-DERMAL SCH (09:00)
[2017-05-06] MEDS: TRIAMCINOLONE ACETONIDE 0.1% CREAM 15 GM TOPICAL SCH ×2 (09:00→22:04)
[2017-05-06] MEDS: REMOVE OLD PATCH T-DERMAL SCH (09:00)
[2017-05-06] MEDS: DOCUSATE SODIUM 50 MG/SENNA 8.6 MG TAB PO SCH (09:54)
[2017-05-06] MEDS: metFORMIN HCL 500 MG TAB PO SCH ×2 (09:54→18:45)
[2017-05-06] MEDS: CLOPIDOGREL 75 MG TAB PO SCH (09:54)
[2017-05-06] MEDS: LISINOPRIL 20 MG TAB PO SCH (09:54)
[2017-05-06] MEDS: HYDROCHLOROTHIAZIDE 25 MG TAB PO SCH (09:55)
[2017-05-06] MEDS: QUEtiapine FUMARATE 25 MG TAB PO SCH ×2 (09:56→16:22)
[2017-05-06] MEDS: DIVALPROEX DR 500 MG TABEC PO SCH ×2 (09:56→22:02)
[2017-05-06] MEDS: GABAPENTIN 100 MG CAP PO SCH ×3 (09:56→18:45)
[2017-05-06] MEDS: LIDOCAINE HCL 5% PATCH T-DERMAL SCH (09:58)
--- NOTE | 2017-05-06 12:28 | HHI.PYPN ---
Subjective Remarks Patient seen and examined with nurse in coverage for . Chart reviewed. Case discussed with nursing staff who notes that the patient seems somewhat more depressed. On my examination today, the patient reports her mood was "terrible" this morning. She complains of "bad dreams" and possible auditory hallucinations telling her to do "bad things" to others. She denies any homicidal or violent plan or intent. She has no specific victim in mind. She denies any suicidal ideation. She reports seeing "shadows." She denies side effects from medications. No physical complaints. Review of Systems Except as stated in HPI: all other systems reviewed are Neg Mental Status Examination Appearance: Appropriate Consciousness: Alert Orientation: x4 Motor Activity: Normal gait, Other (no motor abnormalities noted) Speech: Unremarkable Language: Adequate Fund of Knowledge: Inadequate Attention and Concentration: Adequate Memory: Unremarkable Mood: Other (depressed) Affect: Other (mood congruent) Thought Process & Associations: Linear Thought Content: Hallucinations Hallucination Type: Auditory (as noted above), Visual (shadows) Suicidal Ideation: No Suicidal Plan: No Suicidal Intention: No Homicidal Ideation: Yes (as noted above) Homicidal Plan: No Homicidal Intention: No (no reported urge to hurt anyone on the inpatient unit) Insight: Fair Judgment: Poor Results Labs Labs reviewed. Vitals/IOs Vital Signs Date Time Temp Pulse Resp B/P (MAP) Pulse Ox O2 Delivery O2 Flow Rate FiO2 05/06/17 06:01 98.4 77 18 113/63 (80) 97 Intake and Output 05/06/17 05/06/17 05/07/17 08:00 16:00 00:00 Intake Total 240 ml 240 ml Balance 240 ml 240 ml Assessment & Plan Problem List: (1) Schizoaffective disorder ICD Codes: F25.9 - Schizoaffective disorder, unspecified Status: Acute Assessment & Plan Titrate nighttime dose of Seroquel to 400 mg to target psychotic symptoms and for mood stabilization. Continue other psychotropics as ordered. Continue to monitor on the inpatient unit. Continue other care as ordered. Justification for Cont. Inpt. Med changes. Monitoring for impairment in safety. Risk for decompensation in less restrictive environment. Discharge Planning Per . Request HC Surrog/Guard Advoc?: No Problem Qualifiers (1) Schizoaffective disorder: Qualified Codes: F25.1 - Schizoaffective disorder, depressive type Tony Santos MD May 06, 2017 12:28
[2017-05-06] MEDS: ACETAMINOPHEN 325 MG TAB PO PRN (16:30)
[2017-05-06 18:00] VITALS: BP 133/69; PULSE 98; RESP 17; TEMP 97.2; O2SAT 98
[2017-05-06] MEDS: REMOVE OLD NICODERM (NICOTINE) PATCH T-DERMAL SCH (21:00)
[2017-05-06] MEDS: traZODone HCL 50 MG TAB PO SCH (22:02)
[2017-05-06] MEDS: QUEtiapine FUMARATE 100 MG TAB PO SCH (22:03)
[2017-05-06] MEDS: ATORVASTATIN 40 MG TAB PO SCH (22:03)
[2017-05-07] MEDS: ACETAMINOPHEN 325 MG TAB PO PRN ×2 (04:31→09:49)
[2017-05-07 06:27] VITALS: BP 108/54; PULSE 87; RESP 18; TEMP 98.1; O2SAT 96
[2017-05-07] MEDS: INSULIN ASPART SUPPLEMENTAL SCALE SQ SCH ×3 (07:33→21:00)
[2017-05-07] MEDS: REMOVE OLD PATCH T-DERMAL SCH (09:00)
[2017-05-07] MEDS: NICOTINE 21 MG/24 HR PATCH T-DERMAL SCH (09:00)
[2017-05-07] MEDS: TRIAMCINOLONE ACETONIDE 0.1% CREAM 15 GM TOPICAL SCH ×3 (09:00→21:00)
[2017-05-07] MEDS: LIDOCAINE HCL 5% PATCH T-DERMAL SCH ×2 (09:00→09:50)
[2017-05-07] MEDS: CLOPIDOGREL 75 MG TAB PO SCH (09:32)
[2017-05-07] MEDS: DOCUSATE SODIUM 50 MG/SENNA 8.6 MG TAB PO SCH (09:33)
[2017-05-07] MEDS: LISINOPRIL 20 MG TAB PO SCH (09:33)
[2017-05-07] MEDS: QUEtiapine FUMARATE 25 MG TAB PO SCH ×2 (09:33→15:37)
[2017-05-07] MEDS: HYDROCHLOROTHIAZIDE 25 MG TAB PO SCH (09:33)
[2017-05-07] MEDS: GABAPENTIN 100 MG CAP PO SCH ×3 (09:34→18:00)
[2017-05-07] MEDS: DIVALPROEX DR 500 MG TABEC PO SCH ×2 (09:34→21:52)
[2017-05-07] MEDS: metFORMIN HCL 500 MG TAB PO SCH ×2 (09:34→18:00)
--- NOTE | 2017-05-07 13:44 | HHI.PYPN ---
Subjective Remarks Patient was seen and case discussed with nursing. Patient says her hallucinations went away last night. She is apathetic, blunted, and guarded. Hyperverbal. Describes her mood today is "feeling the blues." She does deny suicidal or homicidal ideation intent or plan. Behaving well on the unit Mental Status Examination Appearance: Appropriate Consciousness: Alert Orientation: x4 Motor Activity: Normal gait, Other (no motor abnormalities noted) Speech: Unremarkable Language: Adequate Fund of Knowledge: Inadequate Attention and Concentration: Adequate Memory: Unremarkable Mood: Other (depressed) Affect: Other (mood congruent) Thought Process & Associations: Linear Thought Content: Hallucinations Hallucination Type: Auditory (as noted above), Visual (shadows) Suicidal Ideation: No Suicidal Plan: No Suicidal Intention: No Homicidal Ideation: Yes (as noted above) Homicidal Plan: No Homicidal Intention: No (no reported urge to hurt anyone on the inpatient unit) Insight: Fair Judgment: Poor Results Vitals/IOs Vital Signs Date Time Temp Pulse Resp B/P (MAP) Pulse Ox O2 Delivery O2 Flow Rate FiO2 05/07/17 10:57 12 05/07/17 06:27 98.1 87 108/54 (72) 96 Assessment & Plan Problem List: (1) Schizoaffective disorder ICD Codes: F25.9 - Schizoaffective disorder, unspecified Status: Acute Assessment & Plan Continue current treatment plan Justification for Cont. Inpt. Patient would decompensate in a less restrictive setting Request HC Surrog/Guard Advoc?: No Problem Qualifiers (1) Schizoaffective disorder: Qualified Codes: F25.1 - Schizoaffective disorder, depressive type Jorgito Hager DO May 07, 2017 13:44
[2017-05-07] MEDS ORDERED: SODIUM CHLORID 0.9% 500 ML INJ 500 ML IV ONE (15:15)
--- NOTE | 2017-05-07 16:20 | HHI.PR ---
Subjective Remarks Reconsult hyperglycemia Staff reported patient has hyperglycemia with sugars in the 300s. States that patient has been noncompliant with diet. Patient seen and examined today. Discuss with patient importance of compliance with diet. Patient admits to asking for other people's food. States "they made me go hungry in here." Otherwise, denies pain and discomfort. Denies SOB/ dyspnea. Denies chest pain , palpitations, headaches, dizziness. Denies fevers, chills, n/v/d. Denies dysuria. Objective Vitals Vital Signs Date Time Temp Pulse Resp B/P (MAP) Pulse Ox O2 Delivery O2 Flow Rate FiO2 05/07/17 10:57 12 05/07/17 06:27 98.1 87 18 108/54 (72) 96 05/06/17 18:00 97.2 98 17 133/69 (90) 98 I/O 05/06/17 05/06/17 05/06/17 05/07/17 05/07/17 05/07/17 07:00 15:00 23:00 07:00 15:00 23:00 Intake Total 480 ml Balance 480 ml Intake Oral 480 ml Imaging Last Impressions Myocardial Perfusion Scan Nuc Med 05/03/17 0000 Signed Impressions: Service Date/Time: Wednesday, May 03, 2017 11:15 - CONCLUSION: No reversible defects observed to suggest acute ischemia. RISK CATEGORY: Low Rene King Jr., MD Hip and Pelvis X-Ray 05/02/17 0000 Signed Impressions: Service Date/Time: Tuesday, May 02, 2017 14:14 - CONCLUSION: Negative for acute fracture. Robin Hameed MD FACR Objective Remarks GENERAL: This is an obese, well-developed patient, in no apparent distress. SKIN: Warm and dry. Discolored areas with healing charge master specialist pigmented scabs surrounding bilateral ears, base of head and right upper neck area. Open to air , no redness, or drainage noted. HEENT: Normocephalic. Pupils equal round and reactive. Nose without bleeding. Airway patent. NECK: Trachea midline. No JVD. Supple. CARDIOVASCULAR: Regular rate and rhythm without murmurs, gallops, or rubs. RESPIRATORY: Clear to auscultation. Breath sounds equal bilaterally. No wheezes , rales, or rhonchi. GASTROINTESTINAL: Abdomen soft, non-tender, nondistended. Bowel Sounds normoactive x4. MUSCULOSKELETAL: Extremities without clubbing, cyanosis, or edema. Left sided hip with no open sores, or ecchymosis noted. NEUROLOGICAL: Awake and alert. Oriented to time, place, person. No focal neuro deficit. Moves all extremities. Normal speech. A/P Problem List: (1) Eczema ICD Code: L30.9 - Dermatitis, unspecified (2) HTN (hypertension) ICD Code: I10 - Essential (primary) hypertension (3) Diabetes mellitus ICD Code: E11.9 - Type 2 diabetes mellitus without complications (4) Neuropathy ICD Code: G62.9 - Polyneuropathy, unspecified (5) Chronic headaches ICD Code: R51 - Headache (6) Chest pain, exertional ICD Code: R07.9 - Chest pain, unspecified Assessment and Plan Patient is a 52-year-old -[place] female with past medical history significant for hypertension, hyperlipidemia, asthma, anxiety, depression, bipolar disorder, and eczema who presents to [facility] inpatient [facility] as a transfer from another facility. Medical team has consulted to assist with medical management and chronic facial rash. Fall - No visible trauma, ambulating without difficulties. - Tylenol for pain as needed, non-slip shoes/socks - Lidoderm patch for pain. - Hip and pelvic x-ray showed negative for acute fracture - Patient able to ambulate Rash/eczema - Rash self inflicted, scratching at skin constantly, neurogenic eczema. No primary lesion seen on exam. - Looking back through EMR, pathology report dated 04/07/12 of right shoulder biopsy demonstrates nummular/contact dermatitis, possibly related to current eczema - Benadryl cream as needed. May benefit with hydrocortisone cream. CVA hx - No residual weakness noted, continue Plavix, and Lipitor, work on better BP control HTN, uncontrolled - BP elevated goal of BP <140/90 since she is a diabetic. - Continue Amlodipine to 10mg daily, hydrochlorothiazide 25mg QD added by cardiology, lisinopril 20mg daily - BP trend improved DM II, with hyperglycemia - Hemoglobin A1C 6.6 - Continue ADA - Discuss extensively with patient importance of compliance. Patient does not seem to really comply. - Increase metformin 1000mg BID - ISS with coverage, Accu-checks before meals and at bedtime - Continue to monitor blood glucose Neuropathy - Continue gabapentin 100mg TID Chest pain on exertion - EKG reviewed, NSR, non-specific T-wave abnormality - troponin 0.06 - Obtain medical records from [facility], medical records in chart only pertain to mental health - has seen patient, MPI, 2D echo - MB showed no reversible defects of surgery to suggest acute ischemia. - 2-D echo showed normal left ventricular size with ejection fraction 60-65% - Denies any complaints of chest pain HLD - Continue Lipitor Vaginal candidiasis - Diflucan 150mg X1 PO given - No symptoms reported DVT prophylaxis-ambulating Bear Henning May 07, 2017 16:20
[2017-05-07 18:32] VITALS: BP 121/66; PULSE 87; RESP 17; TEMP 98.2; O2SAT 95
[2017-05-07] MEDS: REMOVE OLD NICODERM (NICOTINE) PATCH T-DERMAL SCH (21:00)
[2017-05-07] MEDS: ATORVASTATIN 40 MG TAB PO SCH (21:51)
[2017-05-07] MEDS: traZODone HCL 50 MG TAB PO SCH (21:51)
[2017-05-07] MEDS: QUEtiapine FUMARATE 100 MG TAB PO SCH (22:02)
[2017-05-08 05:48] VITALS: BP 121/75; PULSE 81; RESP 16; TEMP 98.1
[2017-05-08] MEDS: INSULIN ASPART SUPPLEMENTAL SCALE SQ SCH ×4 (08:00→22:38)
[2017-05-08] MEDS: TRIAMCINOLONE ACETONIDE 0.1% CREAM 15 GM TOPICAL SCH ×2 (09:00→22:01)
[2017-05-08] MEDS: NICOTINE 21 MG/24 HR PATCH T-DERMAL SCH (09:00)
[2017-05-08] MEDS: LIDOCAINE HCL 5% PATCH T-DERMAL SCH (09:00)
[2017-05-08] MEDS: QUEtiapine FUMARATE 25 MG TAB PO SCH ×2 (09:00→16:00)
[2017-05-08] MEDS: REMOVE OLD PATCH T-DERMAL SCH (09:00)
[2017-05-08] MEDS: GABAPENTIN 100 MG CAP PO SCH ×3 (09:55→17:00)
[2017-05-08] MEDS: CLOPIDOGREL 75 MG TAB PO SCH (09:55)
[2017-05-08] MEDS: DOCUSATE SODIUM 50 MG/SENNA 8.6 MG TAB PO SCH (09:55)
[2017-05-08] MEDS: metFORMIN HCL 500 MG TAB PO SCH ×2 (09:55→17:00)
[2017-05-08] MEDS: HYDROCHLOROTHIAZIDE 25 MG TAB PO SCH (09:56)
[2017-05-08] MEDS: DIVALPROEX DR 500 MG TABEC PO SCH ×2 (09:56→22:02)
[2017-05-08] MEDS: LISINOPRIL 20 MG TAB PO SCH (09:56)
--- NOTE | 2017-05-08 12:20 | HHI.PYPN ---
Subjective Remarks Patient was seen and case discussed with nursing. Patient is brighter and more cheerful compared to yesterday. She is social on the unit and helping to get patient's during lunchtime. She says she continues to hear voices but they are telling her "good things." She denies any paranoia or ideas of reference. Tolerating her medications well. Patient denies suicidal homicidal ideations intent or plan Mental Status Examination Appearance: Appropriate Consciousness: Alert Orientation: x4 Motor Activity: Normal gait, Other (no motor abnormalities noted) Speech: Unremarkable Language: Adequate Fund of Knowledge: Inadequate Attention and Concentration: Adequate Memory: Unremarkable Mood: Other (depressed) Affect: Other (mood congruent) Thought Process & Associations: Linear Thought Content: Hallucinations Hallucination Type: Auditory (nonspecific), Visual (shadows) Suicidal Ideation: No Suicidal Plan: No Suicidal Intention: No Homicidal Ideation: No Homicidal Plan: No Homicidal Intention: No (no reported urge to hurt anyone on the inpatient unit) Insight: Fair Judgment: Poor Results Vitals/IOs Vital Signs Date Time Temp Pulse Resp B/P (MAP) Pulse Ox O2 Delivery O2 Flow Rate FiO2 05/08/17 05:48 98.1 81 16 121/75 (90) 05/07/17 18:32 95 Intake and Output 05/08/17 05/08/17 05/09/17 08:00 16:00 00:00 Intake Total 480 ml Balance 480 ml Assessment & Plan Problem List: (1) Schizoaffective disorder ICD Codes: F25.9 - Schizoaffective disorder, unspecified Status: Acute Assessment & Plan Continue current treatment plan Justification for Cont. Inpt. Patient will decompensate in a less restrictive setting Request HC Surrog/Guard Advoc?: No Problem Qualifiers (1) Schizoaffective disorder: Qualified Codes: F25.1 - Schizoaffective disorder, depressive type Jorgito Hager DO May 08, 2017 12:20
[2017-05-08 18:54] VITALS: BP 121/67; PULSE 91; RESP 16; TEMP 97.7; O2SAT 98
[2017-05-08] MEDS: REMOVE OLD NICODERM (NICOTINE) PATCH T-DERMAL SCH (21:00)
[2017-05-08] MEDS: traZODone HCL 50 MG TAB PO SCH (22:02)
[2017-05-08] MEDS: ATORVASTATIN 40 MG TAB PO SCH (22:02)
[2017-05-08] MEDS: QUEtiapine FUMARATE 100 MG TAB PO SCH (22:03)
[2017-05-09 06:02] VITALS: BP 115/63; PULSE 92; RESP 16; TEMP 97.6
[2017-05-09] MEDS: INSULIN ASPART SUPPLEMENTAL SCALE SQ SCH ×4 (08:00→21:00)
[2017-05-09] MEDS: TRIAMCINOLONE ACETONIDE 0.1% CREAM 15 GM TOPICAL SCH ×2 (09:00→22:25)
[2017-05-09] MEDS: NICOTINE 21 MG/24 HR PATCH T-DERMAL SCH (09:00)
[2017-05-09] MEDS: REMOVE OLD PATCH T-DERMAL SCH (09:00)
[2017-05-09] MEDS: LIDOCAINE HCL 5% PATCH T-DERMAL SCH (09:00)
[2017-05-09] MEDS: metFORMIN HCL 500 MG TAB PO SCH ×2 (09:15→17:58)
[2017-05-09] MEDS: CLOPIDOGREL 75 MG TAB PO SCH (09:15)
[2017-05-09] MEDS: GABAPENTIN 100 MG CAP PO SCH ×3 (09:15→17:58)
[2017-05-09] MEDS: DOCUSATE SODIUM 50 MG/SENNA 8.6 MG TAB PO SCH (09:15)
[2017-05-09] MEDS: DIVALPROEX DR 500 MG TABEC PO SCH ×2 (09:15→22:25)
[2017-05-09] MEDS: HYDROCHLOROTHIAZIDE 25 MG TAB PO SCH (09:16)
[2017-05-09] MEDS: QUEtiapine FUMARATE 25 MG TAB PO SCH ×2 (09:16→16:00)
[2017-05-09] MEDS: LISINOPRIL 20 MG TAB PO SCH (09:16)
--- NOTE | 2017-05-09 10:36 | HHI.PR ---
Subjective Remarks Follow-up visit eczema, HTN, DM with hyperglycemia, neuropathy Patient seen and examined today. Reports she wants to go home. States that she has nausea, vomiting since . Patient was asked again why she did not bring up this topic when she was seen prior states that she measured it at a nurse and forgot to mention it to me. Patient also reports that she has some constipation and is having a hard time to move her bowels. Discuss with patient metformin could cause abdominal discomfort at an increased dose however since dose increase only happened recently and not since last week the nausea, vomiting might be from constipation. Discuss extensively with patient diabetes effect as to cardiac, and renal function. Objective Vitals Vital Signs Date Time Temp Pulse Resp B/P (MAP) Pulse Ox O2 Delivery O2 Flow Rate FiO2 05/09/17 06:02 97.6 92 16 115/63 (80) 05/08/17 18:54 97.7 91 16 121/67 (85) 98 I/O 05/08/17 05/08/17 05/08/17 05/09/17 05/09/17 05/09/17 07:00 15:00 23:00 07:00 15:00 23:00 Intake Total 720 ml 240 ml 240 ml Balance 720 ml 240 ml 240 ml Intake Oral 720 ml 240 ml 240 ml Imaging Last Impressions Myocardial Perfusion Scan Nuc Med 05/03/17 0000 Signed Impressions: Service Date/Time: Wednesday, May 03, 2017 11:15 - CONCLUSION: No reversible defects observed to suggest acute ischemia. RISK CATEGORY: Low Rene King Jr., MD Hip and Pelvis X-Ray 05/02/17 0000 Signed Impressions: Service Date/Time: Tuesday, May 02, 2017 14:14 - CONCLUSION: Negative for acute fracture. Robin Hameed MD FACR Objective Remarks GENERAL: This is an obese, well-developed patient, in no apparent distress. SKIN: Warm and dry. Discolored areas with healing wafer fabrication technician pigmented scabs surrounding bilateral ears, base of head and right upper neck area. Open to air , no redness, or drainage noted. HEENT: Normocephalic. Pupils equal round and reactive. Nose without bleeding. Airway patent. NECK: Trachea midline. No JVD. Supple. CARDIOVASCULAR: Regular rate and rhythm without murmurs, gallops, or rubs. RESPIRATORY: Clear to auscultation. Breath sounds equal bilaterally. No wheezes , rales, or rhonchi. GASTROINTESTINAL: Abdomen soft, non-tender, nondistended. Bowel Sounds normoactive x4. MUSCULOSKELETAL: Extremities without clubbing, cyanosis, or edema. Left sided hip with no open sores, or ecchymosis noted. NEUROLOGICAL: Awake and alert. Oriented to time, place, person. No focal neuro deficit. Moves all extremities. Normal speech. A/P Problem List: (1) Eczema ICD Code: L30.9 - Dermatitis, unspecified (2) HTN (hypertension) ICD Code: I10 - Essential (primary) hypertension (3) Diabetes mellitus ICD Code: E11.9 - Type 2 diabetes mellitus without complications (4) Neuropathy ICD Code: G62.9 - Polyneuropathy, unspecified (5) Chronic headaches ICD Code: R51 - Headache (6) Chest pain, exertional ICD Code: R07.9 - Chest pain, unspecified Assessment and Plan Patient is a 52-year-old -Citizen Of [place] female with past medical history significant for hypertension, hyperlipidemia, asthma, anxiety, depression, bipolar disorder, and eczema who presents to [facility] inpatient [facility] as a transfer from another facility. Medical team has consulted to assist with medical management and chronic facial rash. Nausea, vomiting - Constipation. MOM, MiraLAX Fall - No visible trauma, ambulating without difficulties. - Tylenol for pain as needed, non-slip shoes/socks - Lidoderm patch for pain. - Hip and pelvic x-ray showed negative for acute fracture - Patient able to ambulate Rash/eczema - Rash self inflicted, scratching at skin constantly, neurogenic eczema. No primary lesion seen on exam. - Looking back through EMR, pathology report dated 04/07/12 of right shoulder biopsy demonstrates nummular/contact dermatitis, possibly related to current eczema - Benadryl cream as needed. May benefit with hydrocortisone cream. CVA hx - No residual weakness noted, continue Plavix, and Lipitor, work on better BP control HTN, uncontrolled - BP elevated goal of BP <140/90 since she is a diabetic. - Continue Amlodipine to 10mg daily, hydrochlorothiazide 25mg QD added by cardiology, lisinopril 20mg daily - BP trend improved DM II, with hyperglycemia - Hemoglobin A1C 6.6 - Continue ADA - Discuss extensively with patient importance of compliance. Patient does not seem to really comply. - Increase metformin 1000mg BID - ISS with coverage, Accu-checks before meals and at bedtime - Continue to monitor blood glucose Neuropathy - Continue gabapentin 100mg TID Chest pain on exertion - EKG reviewed, NSR, non-specific T-wave abnormality - troponin 0.06 - Obtain medical records from [facility], medical records in chart only pertain to mental health - has seen patient, MPI, 2D echo - MB showed no reversible defects of surgery to suggest acute ischemia. - 2-D echo showed normal left ventricular size with ejection fraction 60-65% - Denies any complaints of chest pain HLD - Continue Lipitor Vaginal candidiasis - Diflucan 150mg X1 PO given - No symptoms reported DVT prophylaxis-ambulating Bear Henning May 09, 2017 10:36
[2017-05-09] MEDS: ACETAMINOPHEN 325 MG TAB PO PRN (12:00)
--- NOTE | 2017-05-09 15:53 | PD.TTN ---
Patient Problems 1. Discharge planning 2. Medication compliance 3. Knowledge deficit 4. Lack of coping skills Progress Toward Goals Provider Present: Dr. Sadia Santos Provider Input: 05/02- Pt is back on her medication regiment and will continue to be evaluated. Pt is improving slightly Nurse(s) Present: Delmis Herr RN Nurse(s) Input: Pt has been cooperative, pleasant, appropriate and medication compliant. Psychiatric Counselors Present: MARY Grande Psych Therapist Input: Pt appears calm, cooperative, appropriate, organized and oriented. She appears with improving coping and emotional regulation skills. She presents with fair insight into condition and need for care. Pt has been compliant with medication regiment. Pt reports she will go to her brothers home when she is discharged. Group Spec/RT/OT/TERRY Present: MARA Bowman Group Spec/RT/OT/TERRY Input: 05/02- Pt participates in ice cream group appropriately and is seclusive. Discharge Plan [facility] Pt will return to her brother's home after discharge and will continue to follow up with [facility]. Documentation Scribe: MARY Grande Teaching Recipient: Patient KahlilFrench Conde, SUPERVISOR [employer] May 09, 2017 15:53
[2017-05-09 18:00] VITALS: BP 106/68; PULSE 91; RESP 19; TEMP 97.8; O2SAT 96
--- NOTE | 2017-05-09 18:26 | HHI.PYPN ---
Subjective Remarks Patient seen for follow-up, chart reviewed. Patient found lying in hospital bed , cooperative interview today. The weekend she had been feeling that she was improving but continues to report feeling depressed with lessening of suicide ideations but reports having intermittent suicidal ideations and less so recently with last time being earlier this morning. Reports planning to return back to residence of her brother as he is the only family member that understands her mental illness and has been supportive. Patient denies any resurgence about hallucinations, homicidal ideations or delusions recently. Review of Systems Except as stated in HPI: all other systems reviewed are Neg Mental Status Examination Appearance: Appropriate Consciousness: Alert Orientation: x4 Motor Activity: Normal gait, Other (no motor abnormalities noted) Speech: Unremarkable Language: Adequate Fund of Knowledge: Inadequate Attention and Concentration: Adequate Memory: Unremarkable Mood: Sad (Reports improving) Affect: Other (mood congruent) Thought Process & Associations: Linear Thought Content: Hallucinations (Denies today) Hallucination Type: Auditory (Denies today), Visual (Denies today) Delusion Type: None Suicidal Ideation: Yes (Intermittent but less so recently.) Suicidal Plan: No Suicidal Intention: No Homicidal Ideation: No Homicidal Plan: No Homicidal Intention: No Insight: Fair Judgment: Impulsive Results Vitals/IOs Vital Signs Date Time Temp Pulse Resp B/P (MAP) Pulse Ox O2 Delivery O2 Flow Rate FiO2 05/09/17 18:00 97.8 91 19 106/68 (81) 96 Intake and Output 05/09/17 05/09/17 05/10/17 08:00 16:00 00:00 Intake Total 240 ml Balance 240 ml Assessment & Plan Problem List: (1) Schizoaffective disorder ICD Codes: F25.9 - Schizoaffective disorder, unspecified Status: Acute Assessment & Plan Patient reports improved mood other continue to feel somewhat depressed but states that it is better. If patient continues to deny consistent non- recurrence of suicidal ideation with continued improvement in mood patient likely will discharge tomorrow back to present residence and to continue outpatient follow-up. Continue to monitor mood and behavior. Discharge planning in progress. Justification for Cont. Inpt. At risk for further decompensation at lower level of care. Discharge Planning Patient to return back to brother's residence. Request HC Surrog/Guard Advoc?: No Problem Qualifiers (1) Schizoaffective disorder: Qualified Codes: F25.1 - Schizoaffective disorder, depressive type Jj Santos MD May 09, 2017 18:26
[2017-05-09] MEDS: REMOVE OLD NICODERM (NICOTINE) PATCH T-DERMAL SCH (21:00)
[2017-05-09] MEDS: traZODone HCL 50 MG TAB PO SCH (22:25)
[2017-05-09] MEDS: ATORVASTATIN 40 MG TAB PO SCH (22:25)
[2017-05-09] MEDS: QUEtiapine FUMARATE 100 MG TAB PO SCH (22:26)
[2017-05-10] MEDS ORDERED: QUET400T PO (06:59)
[2017-05-10] MEDS ORDERED: ATOR40TA16 PO (06:59)
[2017-05-10] MEDS ORDERED: PLAV75TA29 PO (06:59)
[2017-05-10] MEDS ORDERED: HYDR25TA5 PO (06:59)
[2017-05-10] MEDS ORDERED: DEPA500T PO (06:59)
[2017-05-10] MEDS ORDERED: QUET5TAB PO (06:59)
[2017-05-10] MEDS ORDERED: TRIA.1%T TOPICAL (06:59)
[2017-05-10] MEDS ORDERED: METF1000 PO (06:59)
[2017-05-10] MEDS ORDERED: PERI PO (06:59)
[2017-05-10] MEDS ORDERED: LIDO1ADH4 T-DERMAL (06:59)
[2017-05-10] MEDS ORDERED: GABA100C4 PO (06:59)
[2017-05-10] MEDS ORDERED: AMLO10 PO (06:59)
[2017-05-10] MEDS ORDERED: TRAZ50TA12 PO (06:59)
[2017-05-10] MEDS ORDERED: LISI-515 PO (06:59)
[2017-05-10 08:00] VITALS: BP 133/71; PULSE 93; RESP 17; TEMP 97.3; O2SAT 96
[2017-05-10 08:15] VITALS: BP 133/71
[2017-05-10] MEDS: INSULIN ASPART SUPPLEMENTAL SCALE SQ SCH ×2 (08:25→11:14)
[2017-05-10] MEDS: LIDOCAINE HCL 5% PATCH T-DERMAL SCH (08:26)
[2017-05-10] MEDS: DOCUSATE SODIUM 50 MG/SENNA 8.6 MG TAB PO SCH (08:26)
[2017-05-10] MEDS: HYDROCHLOROTHIAZIDE 25 MG TAB PO SCH (08:26)
[2017-05-10] MEDS: metFORMIN HCL 500 MG TAB PO SCH (08:26)
[2017-05-10] MEDS: DIVALPROEX DR 500 MG TABEC PO SCH (08:27)
[2017-05-10] MEDS: REMOVE OLD NICODERM (NICOTINE) PATCH T-DERMAL SCH (08:27)
[2017-05-10] MEDS: QUEtiapine FUMARATE 25 MG TAB PO SCH (08:27)
[2017-05-10] MEDS: GABAPENTIN 100 MG CAP PO SCH ×2 (08:27→13:20)
[2017-05-10] MEDS: LISINOPRIL 20 MG TAB PO SCH (08:27)
[2017-05-10] MEDS: NICOTINE 21 MG/24 HR PATCH T-DERMAL SCH (08:27)
[2017-05-10] MEDS: CLOPIDOGREL 75 MG TAB PO SCH (08:27)
[2017-05-10] MEDS: diphenhydrAMINE HCL 2%/ZINC ACETATE 0.1% CREAM 30 APPLIC/30 GM TUBE TOPICAL PRN (08:29)
[2017-05-10] MEDS: TRIAMCINOLONE ACETONIDE 0.1% CREAM 15 GM TOPICAL SCH (08:29)
[2017-05-10] MEDS: REMOVE OLD PATCH T-DERMAL SCH (08:29)
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
== END 2017-05-10 15:20 | disposition home or self-care (01) | DRG 885 ==
LOC: H270 20:00 → H260 05-03 14:35
PROVIDERS: ADMIT Student in an Organized Health Care Education/Training Program; ATTEND Student in an Organized Health Care Education/Training Program
DX: F25.1 Schizoaffective disorder, depressive type (principal); E11.40 Type 2 diabetes mellitus with diabetic neuropathy, unspecified; R45.851 Suicidal ideations; F17.210 Nicotine dependence, cigarettes, uncomplicated; I10 Essential (primary) hypertension; B37.3 Candidiasis of vulva and vagina; E66.01 Morbid (severe) obesity due to excess calories; R45.850 Homicidal ideations; F14.90 Cocaine use, unspecified, uncomplicated; F31.9 Bipolar disorder, unspecified; F43.10 Post-traumatic stress disorder, unspecified; L30.9 Dermatitis, unspecified; K59.00 Constipation, unspecified; J45.909 Unspecified asthma, uncomplicated; I20.9 Angina pectoris, unspecified; E78.5 Hyperlipidemia, unspecified; E11.65 Type 2 diabetes mellitus with hyperglycemia; F12.90 Cannabis use, unspecified, uncomplicated; F41.9 Anxiety disorder, unspecified; G47.9 Sleep disorder, unspecified; M25.552 Pain in left hip; M54.9 Dorsalgia, unspecified; R51 Headache; Z79.02 Long term (current) use of antithrombotics/antiplatelets; Z91.11 Patient's noncompliance with dietary regimen; Z91.410 Personal history of adult physical and sexual abuse; Z59.0 Homelessness; Z81.8 Family history of other mental and behavioral disorders; Z79.84 Long term (current) use of oral hypoglycemic drugs; Z86.73 Personal history of transient ischemic attack (TIA), and cerebral infarction without residual deficits; Z68.38 Body mass index [BMI] 38.0-38.9, adult
CPT/HCPCS: 73502; 78452; 80048; 80061; 80164; 82550; 82948; 83036; 84484; 84702; 93005; 93017; 93306; A9502; J1815; J2785; Q0163